=== PATIENT | female | born 1980 | race Caucasian/White ===

== ENCOUNTER → 2017-02-07 | Outpatient (REF) | payer OTHER | LOC: M LAB REF 13:47 | PROVIDERS: ATTEND Internal Medicine Nephrology | DX: N20.0 Calculus of kidney (principal) ==

== ENCOUNTER 2018-03-02 13:10 | Emergency (ER) | payer OTHER ==
[2018-03-02] MEDS: IPRATROPIUM 0.5MG/ALBUTEROL 2.5MG INH SOL UD 3ML (DUONEB)(J7620) NEB (14:40)
[2018-03-02] MEDS: AZITHROMYCIN 250 MG TAB PO (15:15)
== END 2018-03-02 15:18 | disposition home or self-care (01) ==
LOC: M ED 13:10
DX: J45.901 Unspecified asthma with (acute) exacerbation (principal); J20.9 Acute bronchitis, unspecified; N18.3 Chronic kidney disease, stage 3 (moderate); Z79.899 Other long term (current) drug therapy; F17.210 Nicotine dependence, cigarettes, uncomplicated
CPT/HCPCS: 71046

== ENCOUNTER 2018-11-28 16:51 | Emergency (ER) | payer OTHER ==
[~2018-11-28] VITALS: Ht 162.6 cm; Wt 59.4 kg
[~2018-11-28 16:51] MED LIST changes: -CIPR-249 PO; -HYDR12.55 PO; -KETO10TAB PO
[2018-11-28] MEDS ORDERED: HYDR12.55 PO (17:32)
[2018-11-28] MEDS ORDERED: KETOROLAC 30 MG/ML VIAL (J1885) IV ONE (18:30)
[2018-11-28] MEDS ORDERED: ONDANSETRON 4MG/2ML VIAL (J2405) IV ONE (18:30)
[2018-11-28] MEDS ORDERED: NS 1,000 ML IV ONE (18:30)
--- NOTE | 2018-11-28 18:31 | REPVR ---
EXAM: CT Abdomen and Pelvis Without Contrast EXAM DATE/TIME: 11/28/2018 5:45 PM CLINICAL HISTORY: 38 years old, female; Abdominal pain; Flank; Left; Additional info: Flank pain- left, fever/chills, ua small blood TECHNIQUE: Imaging protocol: Axial computed tomography images of the abdomen and pelvis without contrast. Coronal and sagittal reformatted images were created and reviewed. Radiation optimization: All CT scans at this facility use at least one of these dose optimization techniques: automated exposure control; mA and/or kV adjustment per patient size (includes targeted exams where dose is matched to clinical indication); or iterative reconstruction. COMPARISON: RENAL US 12/15/2015 10:06 AM FINDINGS: Liver: Normal. No mass. Gallbladder and bile ducts: Normal. No calcified stones. No ductal dilation. Pancreas: Normal. No ductal dilation. Spleen: Normal. No splenomegaly. Adrenals: Normal. No mass. Kidneys and ureters: Bilateral renal calculi measure 1.2 x 1.9 cm in the right renal pelvis and 1 x 0.6 cm in the left renal pelvis. Also noted are bilateral densities in the region of the medullary pyramids. Findings consistent with medullary sponge kidney with nephrocalcinosis. No significant hydronephrosis at this time. Infection to be excluded clinically. Stomach and bowel: Normal. No obstruction. No mucosal thickening. Appendix: No evidence of appendicitis. Intraperitoneal space: Normal. No free air. No significant fluid collection. Vasculature: Normal. No abdominal aortic aneurysm. Lymph nodes: Left inguinal lymphadenopathy measures up to 13 mm. Bladder: Unremarkable as visualized. Reproductive: IUD demonstrated within the uterus. Bones/joints: Age-indeterminate rib fracture right ninth rib. Soft tissues: Otherwise unremarkable. IMPRESSION: Bilateral renal calculi measure 1.2 x 1.9 cm in the right renal pelvis and 1 x 0.6 cm in the left renal pelvis. Also noted are bilateral densities in the region of the medullary pyramids. Findings consistent with medullary sponge kidney with nephrocalcinosis. No significant hydronephrosis at this time. Infection to be excluded clinically. Electronically signed by: Yuniel Alicea On 11/28/2018 18:31:04 PM
[2018-11-28 20:07] VITALS: BP 113/64
[2018-11-28] MEDS ORDERED: ACETAMINOPHEN 500 MG TAB PO ONE (20:15)
[2018-11-28] MEDS ORDERED: KETO10TAB PO (21:27)
[2018-11-28] MEDS ORDERED: CIPR-249 PO (21:41)
[2018-11-28] MEDS ORDERED: NORCO 5/325MG TABLET (BULK FOR ED) PO ONE (21:45)
== END 2018-11-28 22:16 | disposition home or self-care (01) ==
LOC: M ED 16:51
DX: N20.0 Calculus of kidney (principal); N39.0 Urinary tract infection, site not specified; N18.2 Chronic kidney disease, stage 2 (mild); Z79.899 Other long term (current) drug therapy
CPT/HCPCS: 74176; 84702; 96374; 96375; 99284; J1885; J2405

== ENCOUNTER → 2018-11-28 | Outpatient (REF) | payer OTHER ==
[~2018-11-28] MED LIST: CALC-205 PO; CIPR-249 PO; FLOM0.4C39 PO; HYDR12.55 PO; KETO10TAB PO; POTA10808 PO; PYRI1TAB5 PO; VENTAER INH; ZITHTAB PO
== END ==
LOC: M LAB REF 16:59
PROVIDERS: ATTEND Internal Medicine Nephrology
DX: Q61.5 Medullary cystic kidney (principal); N23 Unspecified renal colic; N39.0 Urinary tract infection, site not specified

== ENCOUNTER → 2019-07-20 | Outpatient (CLI) | payer OTHER ==
[~2019-07-20] MED LIST changes: +CIPR-249 PO; +HYDR12.55 PO; +KETO10TAB PO
== END ==
LOC: M LABSMTC 10:35
PROVIDERS: ATTEND Family Medicine
DX: Z11.59 Encounter for screening for other viral diseases (principal); Z20.828 Contact with and (suspected) exposure to other viral communicable diseases

== ENCOUNTER → 2020-01-25 | Outpatient (REF) | payer OTHER ==
[2020-01-25 17:50] LABS: APPEARANCE, URINE CLOUDY (CLEAR); BACTERIA, URINE AUTO 1+ (NEGATIVE); BILIRUBIN, URINE AUTO NEGATIVE (NEGATIVE); BLOOD, URINE BLOOD 2+ (NEGATIVE); COLOR, URINE YELLOW (YELLOW); GLUCOSE, URINE (UA) AUTO NEGATIVE (NEGATIVE); KETONE, URINE AUTO NEGATIVE (NEGATIVE); LEUKOCYTE ESTERASE, URINE AUTO 3+ (NEGATIVE); NITRITE, URINE AUTO POSITIVE (NEGATIVE); PROTEIN, URINE AUTO NEGATIVE (NEGATIVE); RBC, URINE AUTO 14 /HPF (0-3); SPECIFIC GRAVITY URINE AUTO 1.004 (1.002-1.035); SQUAMOUS EPITHELIAL CELL UR AU 0 /HPF (0-6); UROBILINOGEN, URINE AUTO 0.2 mg/dL (0.0-2.0); WBC, URINE AUTO TNTC /HPF (0-3)
== END ==
LOC: M LAB REF 16:28
PROVIDERS: ATTEND Internal Medicine Nephrology
DX: N39.0 Urinary tract infection, site not specified (principal); Q61.5 Medullary cystic kidney; N23 Unspecified renal colic

== ENCOUNTER → 2020-02-23 | Outpatient (REF) | payer OTHER | LOC: M LAB REF 17:20 | PROVIDERS: ATTEND Internal Medicine Nephrology | DX: Z16.12 Extended spectrum beta lactamase (ESBL) resistance (principal) ==

== ENCOUNTER → 2020-02-25 | Outpatient (CLI) | payer OTHER ==
--- NOTE | 2020-02-25 16:19 | REP ---
INDICATION: CALCULUS OF KIDNEY. COMPARISON: 11/28/2018. TECHNIQUE: Renal stone protocol with coronal and sagittal reconstructions. FINDINGS: CT abdomen: The lung bases are clear. Heart is not enlarged there is no pericardial thickening or effusion. No hiatal hernia. Stomach with retained food from recent meal. The liver, spleen, gallbladder, pancreas and adrenal glands are normal. The colon and small bowel loops in the upper abdomen were unremarkable except for some scattered diverticula in the colon without diverticulitis. Kidneys are unchanged in size there is evidence for diffuse pyramidal calcifications in a pattern consistent with medullary sponge kidney and nephrocalcinosis. The right kidney now shows a staghorn calculus with maximum diameter of 3.7 x 2 by 1.6 cm in the interpolar lower pole region on the right as a fusion of 2 prominent calcifications seen on the previous study. The left kidney shows 2 calcifications in the collecting system, the larger 18 x 10 mm and the smaller about 6 mm in the interpolar and lower pole regions respectively. There is no hydronephrosis, hydroureter or ureteral stone. I see no evidence of edema or asymmetric swelling of either kidney. No perinephric edema or fluid. CT pelvis: Multiple pelvic phleboliths are seen uterus is anteverted with a T-shaped IUD in body and fundus bladder partially filled without stone mass or wall thickening. No adnexal mass or pelvic free fluid some diverticulosis distal left colon and sigmoid without diverticulitis. Cecum and appendix seen and normal. Small bowel loops in the pelvis unremarkable no ventral or inguinal hernia. The bone windows in the abdomen and pelvis show no acute finding. IMPRESSION: 1. Medullary sponge kidney with nephrocalcinosis bilaterally similar to previous study. No hydronephrosis hydroureter or ureteral stone. 2. Staghorn calculus in the right kidney from fusion of 2 large calcifications in the interpolar and lower pole region seen last year with measurements as described. There are 2 calcifications in the left kidney 1 in the interpolar the other lower pole region as described. These also have enlarged since last year. 3. Scattered diverticula throughout the colon without signs of colitis or diverticulitis. Small bowel loops unremarkable. The other abdominal organs intact. 4. IUD in the uterine body and fundus. No pelvic mass. No ascites. <Electronically signed by Carlos Henson > 02/25/20 0894
== END ==
LOC: M RAD 15:44
PROVIDERS: ATTEND Internal Medicine Nephrology
DX: Z16.12 Extended spectrum beta lactamase (ESBL) resistance (principal); Q61.5 Medullary cystic kidney; N20.0 Calculus of kidney

== ENCOUNTER → 2020-03-04 | Outpatient (REF) | payer OTHER | LOC: M LAB REF 17:02 | PROVIDERS: ATTEND Internal Medicine Nephrology | DX: N39.0 Urinary tract infection, site not specified (principal) ==

== ENCOUNTER → 2020-03-24 | Outpatient (REF) | payer OTHER, BC ==
[~2020-03-24] MED LIST changes: +BACT800T5 PO; +CVS1CAP2 PO; +FLUC10TA PO; +MACR100C43 PO; +ZOFR4TAB16 PO
== END ==
LOC: M LAB REF 16:42
PROVIDERS: ATTEND Internal Medicine Nephrology
DX: Z16.12 Extended spectrum beta lactamase (ESBL) resistance (principal); N10 Acute pyelonephritis; N20.0 Calculus of kidney

== ENCOUNTER → 2020-03-29 | Outpatient (CLI) | payer OTHER ==
[2020-03-29 17:55] LABS: HEMATOCRIT 39.4 % (36.0-47.0); HEMOGLOBIN 12.5 g/dl (12.0-15.5); MEAN CORPUSCULAR HEMOGLOBIN 30.3 pg (27.0-33.0); MEAN CORPUSCULAR HGB CONC 31.7 g/dl (32.0-36.5); MEAN CORPUSCULAR VOLUME 95.4 fl (80.0-96.0); PLATELET COUNT, AUTOMATED 365 10^3/uL (150-450); RED BLOOD COUNT 4.13 10^6/uL (4.00-5.40); WHITE BLOOD COUNT 8.2 10^3/uL (4.0-10.0)
[2020-03-29 18:07] LABS: INR 0.93; PROTHROMBIN TIME 12.7 SECONDS (12.5-14.3)
[2020-03-29 18:07] LABS: AMORPHOUS SEDIMENT SMALL (NEGATIVE); APPEARANCE, URINE HAZY (CLEAR); BACTERIA, URINE AUTO NEGATIVE (NEGATIVE); BILIRUBIN, URINE AUTO NEGATIVE (NEGATIVE); BLOOD, URINE BLOOD NEGATIVE (NEGATIVE); COLOR, URINE YELLOW (YELLOW); GLUCOSE, URINE (UA) AUTO NEGATIVE (NEGATIVE); KETONE, URINE AUTO NEGATIVE (NEGATIVE); LEUKOCYTE ESTERASE, URINE AUTO 1+ (NEGATIVE); MUCUS, URINE SMALL (NEGATIVE); NITRITE, URINE AUTO NEGATIVE (NEGATIVE); PROTEIN, URINE AUTO NEGATIVE (NEGATIVE); RBC, URINE AUTO 5 /HPF (0-3); SPECIFIC GRAVITY URINE AUTO 1.014 (1.002-1.035); SQUAMOUS EPITHELIAL CELL UR AU 0 /HPF (0-6); UROBILINOGEN, URINE AUTO 0.2 mg/dL (0.0-2.0); WBC, URINE AUTO 7 /HPF (0-3)
[2020-03-29 18:08] LABS: PARTIAL THROMBOPLASTIN TIME 30.1 SECONDS (24.2-38.5)
[2020-03-29 18:16] LABS: BLOOD UREA NITROGEN 13 MG/DL (7-18); CALCIUM LEVEL 8.8 MG/DL (8.5-10.1); CARBON DIOXIDE LEVEL 30 MEQ/L (21-32); CHLORIDE LEVEL 106 MEQ/L (98-107); GLOMERULAR FILTRATION RATE > 60.0 (>58); GLUCOSE, FASTING 93 MG/DL (70-100); POTASSIUM SERUM 4.2 MEQ/L (3.5-5.1); SODIUM LEVEL 137 MEQ/L (136-145)
[2020-03-29 18:26] LABS: HCG, SERUM QUALITATIVE NEGATIVE (NEGATIVE)
--- NOTE | 2020-03-29 18:54 | REP ---
INDICATION: CALCULUS OF KIDNEY, LAB 1ST, EKG 2ND, XR 3RD COMPARISON: 03/02/2018. TECHNIQUE: PA/Lateral FINDINGS: Lungs: Clear, no infiltrate. Heart: Normal in size. Mediastinum: Mediastinal silhouette unremarkable. Pleural angles: Unremarkable.. Bones and soft tissues: Unremarkable. IMPRESSION: No acute pulmonary disease. <Electronically signed by Bill Acuña > 03/29/20 [id number]
--- NOTE | 2020-03-29 21:53 | ECGEPIP ---
[facility] Test Date: 2020-03-29 Pat Name: GROVER DRUMMOND Department: Room: - Gender: Female Internal Sales: TAMMY : 1980 Requested By: Kayla OVALLE Order Number: [id number] Reading MD: Tom Mendez Measurements Intervals [place] Rate: 53 P: 65 DE: 168 QRS: 78 QRSD: 93 T: 50 QT: 408 QTc: 383 Interpretive Statements SINUS BRADYCARDIA Otherwise within normal limits. No prior ECG available for comparison at the time of interpretation. Electronically Signed on 03-29-2020 21:52:58 EST by Tom Mendez
== END ==
LOC: M LAB 17:14
PROVIDERS: ATTEND Nurse Practitioner Women's Health
DX: Z01.818 Encounter for other preprocedural examination (principal); N20.0 Calculus of kidney

== ENCOUNTER → 2020-04-01 | Outpatient (CLI) | payer OTHER, BC | LOC: M LABSMTC 11:50 | PROVIDERS: ATTEND Anesthesiology | DX: Z01.812 Encounter for preprocedural laboratory examination (principal); Z20.828 Contact with and (suspected) exposure to other viral communicable diseases ==

== ENCOUNTER → 2020-04-04 | Outpatient (CLI) | payer OTHER ==
[~2020-04-04] MED LIST changes: +ACETAMINOPHEN *IV* 1,000 MG in IV 1 EA IV STA; +FLUCONAZOLE 100 MG TAB PO ONE; +ISOVUE-300 61% 50ML VIAL As Ordered ONE; +LIDOCAINE 1% MDV 20ML VIAL As Ordered ONE; +MIDAZOLAM INJ 2MG/2ML VIAL (J2250 PER 1MG) As Ordered ONE; +NS 1,000 ML IV SCH; +ONDANSETRON 4MG/2ML VIAL As Ordered ONE; +OXYB5TAB10 PO; +PERCOCET 5MG/325MG TAB As Ordered ONE; +PERCOCET PO; +PROMETHAZINE INJ 25 MG/ML VIAL (J2550) As Ordered ONE; +ceFAZolin 1GM VIAL (J0690 PER 500MG) As Ordered ONE; +ceFAZolin SOD 1 GM in D5W MINI-BAG PLUS 50 ML IV ONE; +diphenhydrAMINE 50MG/ML VIAL (J1200) As Ordered ONE; +fentaNYL 100 MCG/2 ML INJECTION (J3010) As Ordered ONE
--- NOTE | 2020-04-04 10:19 | IRHP ---
[facility] Pre-Procedure H & P General Date of Service: Apr 04, 2020 Procedure: Same Day Surgery Interval History and Physical I have seen the patient and reviewed last H & P performed within 30 days. There is no significant interval change. History of Present Illness Chief Complaint The patient is a 40-year-old female admitted with a reason for visit of Staghorn Calculus. PRE-PROCEDURE DIAGNOSIS: right kidney stone. needs PCNL access HEART: normal rate. LUNGS: normal breathing at rest. ASA Classification ASA Classification: II-Mild systemic disease, III-Severe systemic dis. Mallampati Score: II NPO: Yes Problems with prior sedation: No Obstructive Sleep Apnea: No Plan moderate sedation Allergies Coded Allergies: No Known Allergies (Unverified , 03/30/20) Home Medications Scheduled Fluconazole (Diflucan), 100 MG PO Q2D, (Reported) Lactobacillus Combo No.10 (Probiotic), 1 CAP PO DAILY, (Reported) Nitrofurantoin Monohyd/M-Cryst (Macrobid 100 mg Capsule), 100 MG PO DAILY, (Reported) Sulfamethoxazole/Trimethoprim (Bactrim Ds Tablet), 1 TAB PO BID, (Reported) Tamsulosin HCl (Flomax), 0.4 MG PO DAILY, (Reported) Scheduled PRN Ondansetron HCl (Zofran), 4 MG PO PRN PRN for NAUSEA, (Reported) Discontinued Medications Ciprofloxacin HCl (Cipro), 500 MG PO BID Discontinued Reason: Pt states not taking Hydrochlorothiazide (Hydrochlorothiazide), 12.5 MG PO DAILY, (Reported) Discontinued Reason: Pt states not taking Phenazopyridine HCl (Pyridium), 200 MG PO TID, (Reported) Discontinued Reason: Pt states not taking VS, I&O, 24H, Fishbone Vital Signs/I&O Vital Signs Date Time Temp Pulse Resp B/P (MAP) Pulse Ox O2 Delivery O2 Flow Rate FiO2 04/04/20 09:49 97.7 81 20 99 Room Air JN SAMUELS MD Apr 04, 2020 10:19
[2020-04-04 13:30] VITALS: BP 125/71
--- NOTE | 2020-04-07 12:29 | POST-OPPD ---
Postoperative Procedure Note Date Of Procedure: Apr 04, 2020 Time Of Procedure: 16:00 Percutaneous nephroureteral catheter placement using fluoroscopic and ultrasound guidance. Nephrostogram and Ureterogram Ultrasound of the right kidney. Clinical Information:Right kidney staghorn calculus. Needs antegrade PCNL access. Physician: Dr. Steen. Procedure: The patient was advised of the benefits, risks, and alternatives of the procedure and informed consent was obtained. A time out was performed with verification of the patient's name, MRN, site of procedure, and type of procedure to be performed. The patient was positioned in the prone position on the angiographic table. The site was prepped and draped in the usual sterile fashion. Moderate sedation was performed by the physician including the presence of an independent trained RN who assisted in monitoring the patient's level of consciousness and physiological status. Following the administration of fentanyl and Versed, the physician spent 60 minutes of continuous pqmo-oy-wdoh time with the patient. A silk presser radiograph reveals right staghorn calculus. The anticipated puncture site on the flank was anesthetized with lidocaine. Using ultrasound and fluoroscopy guidance, the staghorn calculus was accessed with a 21-gauge Chiba needle. A nephrostogram was performed which demonstrates no significant hydronephrosis or hydroureter. A second 21-gauge Chiba needle was then used under fluoroscopy guidance to access the lower pole calyx with the stone. A nephrostogram and ureterogram were performed demonstrating successful access. A [place] wire was then advanced into the collecting system, under fluoroscopy guidance. The needle was then exchanged for a nonvascular introducer set. An Amplatz wire was then advanced into the ureter, down the ureter and into the bladder, under fluoroscopy guidance. A glide cath was advanced over the wire under fluoroscopy guidance into the bladder. Injection of contrast through the catheter confirmed successful catheterization of the bladder. No extravasation. A 6 Sri Lankan Seidmon Catheter was then advanced over the wire, through the renal collecting system, down the ureter into the bladder. The distal pigtail was formed. A final nephrostogram and ureterogram were performed confirming positioning of the catheter in the renal collecting system, ureter and bladder. No ureteral extravasation. The catheter was sutured in position with 2-0 Prolene and a sterile dressing applied. The patient tolerated the procedure well and was returned to the PRU in stable condition. EBL: < 5 mL. Complications:None. Conclusion: 1. Nephrostogram and Ureterogram demonstratelarge staghorn calculus in the right kidney without hydronephrosis or hydroureter. 2. Successful right-sided antegrade nephroureteral access for PCNL. Patient to follow-up on Saturday for PCNL. Thank you for this referral. JN STEEN MD Apr 07, 2020 12:29
== END ==
LOC: M IRPRO 09:32 → M SDC 09:32 → EEVIPCON 10:30
PROVIDERS: ATTEND Nurse Practitioner Women's Health
DX: N20.0 Calculus of kidney (principal); F17.210 Nicotine dependence, cigarettes, uncomplicated; Z01.818 Encounter for other preprocedural examination; Z79.899 Other long term (current) drug therapy
CPT/HCPCS: 50433; 99152; 99153; C1758; C1769; C1894; J0690; J1200; J2250; J2405; J3010; Q9967

== ENCOUNTER 2020-04-06 07:30 | Inpatient (IN) | payer OTHER ==
[~2020-04-06] VITALS: Ht 162.6 cm; Wt 62.1 kg
[~2020-04-06 07:30] MED LIST changes: -ACETAMINOPHEN *IV* 1,000 MG in IV 1 EA IV STA; -FLUCONAZOLE 100 MG TAB PO ONE; -ISOVUE-300 61% 50ML VIAL As Ordered ONE; -LIDOCAINE 1% MDV 20ML VIAL As Ordered ONE; -MIDAZOLAM INJ 2MG/2ML VIAL (J2250 PER 1MG) As Ordered ONE; -NS 1,000 ML IV SCH; -ONDANSETRON 4MG/2ML VIAL As Ordered ONE; -OXYB5TAB10 PO; -PERCOCET 5MG/325MG TAB As Ordered ONE; -PERCOCET PO; -PROMETHAZINE INJ 25 MG/ML VIAL (J2550) As Ordered ONE; -ceFAZolin 1GM VIAL (J0690 PER 500MG) As Ordered ONE; -ceFAZolin SOD 1 GM in D5W MINI-BAG PLUS 50 ML IV ONE; -diphenhydrAMINE 50MG/ML VIAL (J1200) As Ordered ONE; -fentaNYL 100 MCG/2 ML INJECTION (J3010) As Ordered ONE
[2020-04-06] MEDS ORDERED: ceFAZolin SOD 2 GM in IV 1 EA IV ONE (11:45)
[2020-04-06] MEDS ORDERED: SCOPOLAMINE 1MG TRANSDERMAL PATCH As Ordered ONE (12:29)
[2020-04-06] MEDS ORDERED: LR 1,000 ML IV ONE (12:45)
[2020-04-06] MEDS ORDERED: SCOPOLAMINE 1MG TRANSDERMAL PATCH TOP ONE (12:45)
[2020-04-06] MEDS ORDERED: ONDANSETRON 4MG/2ML VIAL As Ordered ONE ×2 (14:15→15:24)
[2020-04-06] MEDS ORDERED: fentaNYL 250 MCG/5 ML INJECTION (J3010) As Ordered ONE (14:15)
[2020-04-06] MEDS ORDERED: ROCURONIUM BROMIDE 50 MG/5 ML VIAL As Ordered ONE (14:15)
[2020-04-06] MEDS ORDERED: propofoL 200 MG/20 ML VIAL As Ordered ONE (14:15)
[2020-04-06] MEDS ORDERED: LIDOCAINE 2% 100MG/5ML SDV (FOR ANES.) As Ordered ONE (14:15)
[2020-04-06] MEDS ORDERED: dexameTHASONE 4 MG/ML 1ML VIAL (J1100 PER 1MG) As Ordered ONE (14:15)
[2020-04-06] MEDS ORDERED: MIDAZOLAM INJ 2MG/2ML VIAL (J2250 PER 1MG) As Ordered ONE (14:15)
[2020-04-06] MEDS ORDERED: SEVOFLURANE INHAL SOLN 250 ML BTL As Ordered ONE (15:00)
[2020-04-06] MEDS ORDERED: ePHEDrine SULFATE 25 MG/5 ML(5MG/ML) SYRINGE As Ordered ONE (15:01)
[2020-04-06] MEDS ORDERED: PHENYLephrine HCL 500 MCG/5 ML (100MCG/ML) SYRINGE (J2370) As Ordered ONE (15:01)
[2020-04-06] MEDS ORDERED: CONRAY-60 60% 50ML VIAL (Q9961) As Ordered ONE (15:06)
[2020-04-06] MEDS ORDERED: SUGAMMADEX SODIUM 500 MG/5 ML VIAL (BRIDION) As Ordered ONE (15:24)
[2020-04-06] MEDS ORDERED: ACETAMINOPHEN 1000MG 100ML IV BTL (OFIRMEV) (J0131 PER 10MG) As Ordered ONE (15:24)
--- NOTE | 2020-04-06 16:41 | REP ---
INDICATION: NEPHROLITHIASIS. COMPARISON: 04/04/2020.. TECHNIQUE: Seven views. 34.8 seconds of fluoroscopy time is reported. FINDINGS: A sequence of 7 last image hold fluoroscopically obtained spot radiographs of the right abdomen documents percutaneous large tract manipulation of the right kidney and renal pelvis. Nephrostomy catheter and ureteral stent in place. IMPRESSION: Procedural imaging. <Electronically signed by Sterling Gallo > 04/06/20 [id number]
[2020-04-06] MEDS: oxyCODONE 5MG TAB PO PRN ×2 (16:48→17:33)
[2020-04-06] MEDS ORDERED: HYDROMORPHONE HCL 0.5 MG/ 0.5 ML SYRINGE (J1170 PER 1) IV PRN (17:00)
[2020-04-06] MEDS ORDERED: ONDANSETRON 4MG/2ML VIAL IV PRN ×2 (17:00→17:15)
[2020-04-06] MEDS ORDERED: LR 1,000 ML IV SCH (17:00)
[2020-04-06] MEDS ORDERED: fentaNYL 100 MCG/2 ML INJECTION (J3010) IV PRN (17:00)
[2020-04-06] MEDS: NS 1,000 ML IV SCH (17:02)
[2020-04-06] MEDS ORDERED: ACETAMINOPHEN TAB 650MG DOSE (2X325MG) PO PRN (17:15)
[2020-04-06] MEDS ORDERED: MORPHINE 2 MG/ML 1ML VIAL (J2270) IV PRN (17:15)
[2020-04-06] MEDS ORDERED: PERCOCET 5MG/325MG TAB PO PRN (17:15)
[2020-04-06] MEDS ORDERED: oxyBUTYnin 5 MG TAB As Ordered ONE (17:31)
[2020-04-06 18:00] VITALS: BP 114/61
[2020-04-06 18:19] LABS: HEMATOCRIT 38.6 % (36.0-47.0); HEMOGLOBIN 12.5 g/dl (12.0-15.5); MEAN CORPUSCULAR HEMOGLOBIN 31.3 pg (27.0-33.0); MEAN CORPUSCULAR HGB CONC 32.4 g/dl (32.0-36.5); MEAN CORPUSCULAR VOLUME 96.5 fl (80.0-96.0); PLATELET COUNT, AUTOMATED 344 10^3/uL (150-450); WHITE BLOOD COUNT 13.9 10^3/uL (4.0-10.0)
[2020-04-06 18:31] LABS: BLOOD UREA NITROGEN 12 MG/DL (7-18); CALCIUM LEVEL 8.5 MG/DL (8.5-10.1); CARBON DIOXIDE LEVEL 27 MEQ/L (21-32); CHLORIDE LEVEL 108 MEQ/L (98-107); CREATININE FOR GFR 0.77 MG/DL (0.55-1.30); GLOMERULAR FILTRATION RATE > 60.0 (>58); GLUCOSE, FASTING 102 MG/DL (70-100); POTASSIUM SERUM 4.3 MEQ/L (3.5-5.1); SODIUM LEVEL 137 MEQ/L (136-145)
--- NOTE | 2020-04-06 19:45 | ROOPDOC ---
[facility] Report Of Operation Report of Operation DATE OF PROCEDURE: 04/06/20 PREPROCEDURE DIAGNOSIS: Right kidney stone. POSTPROCEDURE DIAGNOSIS: Right kidney stone. PROCEDURE: Right percutaneous nephrolithotomy, right antegrade nephrostogram with intraoperative interpretation of images, right ureteral stent placement. SURGEON: Dr. Jorge Bray FURNITURE DUSTER: None ANESTHESIA: General. OPERATIVE INDICATIONS: This is a 40 year-old female who was recently found to have bilateral nephrolithiasis with a staghorn stone in her right kidney. She was brought to the operating room today for the above-listed procedure. DESCRIPTION OF PROCEDURE: The patient brought to the operating room, and general anesthesia was induced. Prophylactic antibiotics were infused. A Germain catheter was then placed under sterile conditions. The patient was then re positioned in the prone position in preparation for a right-sided percutaneous nephrolithotomy. The patient was then prepped and draped in the usual sterile fashion. At this point, the previously-placed right nephroureteral catheter was utilized to advance a Motion guidewire down the right collecting system and into the bladder. The nephroureteral catheter was then removed, leaving the wire in place. Next, a 2-3 cm transverse incision was made adjacent to the wire. A dual-lumen ureteral catheter was then advanced down into the right renal pelvis. The staghorn stone could easily be seen on fluoroscopy. An antegrade nephrostogram was performed and was negative for extravasation. An Amplatz Super Stiff wire was then advanced down the right collecting system and into the bladder. The dual-lumen ureteral catheter was then removed, leaving both wires in place. The Motion wire was then secured to the drape to serve as a safety wire. Next, over the Super Stiff wire, a balloon dilator was advanced into the right renal pelvis. The balloon was then inflated and left in place for a few seconds. Next, an access sheath was advanced over the balloon into the right renal pelvis. The balloon was then let down and removed, leaving the access sheath and the wire in place. At this point, a nephroscope was introduced into the right renal pelvis. We were able to identify the staghorn stone. The stone was then fragmented into several pieces and suctioned out using a CyberWand. It appeared that approximately 85% of the stone was removed. There was another fragment in a lower pole calyx that I was not able to reach with the nephroscope. The nephroscope was then removed, and a #7-Singaporean x 22-32 cm double J ureteral stent was advanced down into the right collecting system over the wire. The Super Stiff wire was then removed, and there were adequate curls of the stent in the right renal pelvis and in the bladder. At this point, the access sheath was removed, and the Motion wire was utilized to advance a #18-Singaporean Lummi tip catheter down into the right collecting system. After the tip was within the renal pelvis, the balloon was inflated wi th about 3 mL of contrast. The Lummi tip catheter was also utilized to shoot an antegrade nephrostogram, and this was negative for extravasation. We then secured the Lummi tip catheter to the skin with a #2-0 silk suture. This was then connected to gravity drainage and marked the conclusion of the procedure. The patient was placed back in supine position, awakened from anesthesia, and transported to the recovery room in stable condition. ESTIMATED BLOOD LOSS: approximately 50 mL COMPLICATIONS: None. SPECIMENS: Right kidney stone fragments. PLAN: The patient will be admitted to the hospital postoperatively. I will likely remove her right nephrostomy catheter tomorrow, and if her labs are stable and urine output is clear, I will also remove the Germain catheter. She will be discharged home with the plan to bring her back to the OR in a few weeks for bilateral ureteroscopy to treat her left sided kidney stones and to remove the remainder of her right sided stones as well. JORGE BRAY MD Apr 06, 2020 19:44
[2020-04-06] MEDS: PIPERACILLIN/TAZOBACTAM SOD 3.375 GM in D5W MINI-BAG PLUS 50 ML IV SCH ×2 (20:19→23:59)
[2020-04-06] MEDS: DOCUSATE SODIUM 100MG CAPSULE PO SCH (20:34)
[2020-04-06] MEDS: oxyBUTYnin 5 MG TAB PO PRN (20:34)
[2020-04-06 22:00] VITALS: BP 122/74
[2020-04-07] MEDS: PERCOCET 5MG/325MG TAB PO PRN ×3 (00:01→12:35)
[2020-04-07] MEDS: NICOTINE POLACRILEX 2 MG GUM PO PRN ×2 (00:45→09:40)
[2020-04-07 02:00] VITALS: BP 108/54
[2020-04-07] MEDS: NS 1,000 ML IV SCH (06:07)
[2020-04-07] MEDS: oxyBUTYnin 5 MG TAB PO PRN ×2 (06:07→12:32)
[2020-04-07] MEDS: PIPERACILLIN/TAZOBACTAM SOD 3.375 GM in D5W MINI-BAG PLUS 50 ML IV SCH ×2 (06:07→12:16)
[2020-04-07 07:48] LABS: HEMATOCRIT 34.1 % (36.0-47.0); HEMOGLOBIN 11.2 g/dl (12.0-15.5); MEAN CORPUSCULAR HEMOGLOBIN 31.2 pg (27.0-33.0); MEAN CORPUSCULAR HGB CONC 32.8 g/dl (32.0-36.5); PLATELET COUNT, AUTOMATED 321 10^3/uL (150-450); RED BLOOD COUNT 3.59 10^6/uL (4.00-5.40); WHITE BLOOD COUNT 9.9 10^3/uL (4.0-10.0)
[2020-04-07 08:07] LABS: BLOOD UREA NITROGEN 9 MG/DL (7-18); CALCIUM LEVEL 8.1 MG/DL (8.5-10.1); CARBON DIOXIDE LEVEL 24 MEQ/L (21-32); CHLORIDE LEVEL 108 MEQ/L (98-107); CREATININE FOR GFR 0.65 MG/DL (0.55-1.30); GLOMERULAR FILTRATION RATE > 60.0 (>58); GLUCOSE, FASTING 104 MG/DL (70-100); POTASSIUM SERUM 4.3 MEQ/L (3.5-5.1); SODIUM LEVEL 139 MEQ/L (136-145)
[2020-04-07] MEDS: DOCUSATE SODIUM 100MG CAPSULE PO SCH (08:11)
[2020-04-07] MEDS ORDERED: FLUCONAZOLE 50MG TABLET PO ONE (09:00)
--- NOTE | 2020-04-07 09:24 | IPNPDOC ---
Subjective Review oF Systems Chief Complaint The patient is a 40-year-old female admitted with a reason for visit of Nephrolithiasis. Events since Last Encounter No acute events o/n. Good pain control. No n/v. No f/c/ns. Objective Physical Examination General Exam: Alert, Cooperative, No Acute Distress Skin Exam: Nl turgor and temperature Neuro Exam: Normal Speech Psych Exam: Mental status NL, Mood NL Other physical findings R nephrostomy catheter and Germain catheter draining light pink urine; R flank incision clean/dry/intact Vital Signs/I&O Vital Signs Date Time Temp Pulse Resp B/P (MAP) Pulse Ox O2 Delivery O2 Flow Rate FiO2 04/07/20 07:00 17 Room Air 04/07/20 02:00 98.5 90 108/54 (72) 97 I&O- Last 24 Hours up to 6 AM 04/07/20 05:59 Intake Total 3250 ml Output Total 1560 ml Balance 1690 ml Laboratory Data Labs 24H Laboratory Tests 2 04/06/20 15:36: 04/06/20 17:24: Nucleated Red Blood Cells % (auto) 0.0, Anion Gap 2L, Glomerular Filtration Rate > 60.0, Calcium Level 8.5 04/07/20 06:51: Nucleated Red Blood Cells % (auto) 0.0, Anion Gap 7L, Glomerular Filtration Rate > 60.0, Calcium Level 8.1L CBC/BMP Laboratory Tests 04/06/20 17:24 04/07/20 06:51 Assessment/Plan Date Seen The patient was seen on 04/07/20. Patient Summary This is a 40 y/o F POD1 s/p R PCNL. She is doing well. Her R neph catheter was removed this morning. Plan/VTE VTE Prophylaxis Ordered?: Yes VTE Exclusion Mechanical Proph: N/A:VTE Prophy Ordered Plan - d/c Germain - percocet prn pain - oxybutynin prn bladder spasms - strict I/Os - d/c IVF - regular diet - discharge home after patient voids OJRGE BRAY MD Apr 07, 2020 09:24
[2020-04-07] MEDS ORDERED: PERCOCET PO (09:38)
[2020-04-07] MEDS ORDERED: OXYB5TAB10 PO (09:38)
[2020-04-07 10:00] VITALS: BP 135/70
--- NOTE | 2020-04-08 11:49 | DSES ---
DISCHARGE SUMMARY DATE OF ADMISSION: 04/06/2020 DATE OF DISCHARGE: 04/07/2020 ADMITTING DIAGNOSIS: Right kidney stone. DISCHARGE DIAGNOSIS: Right kidney stone. ADMITTING PHYSICIAN: Jerad Alicia MD. DISCHARGE PHYSICIAN: Jerad Alicia MD. PROCEDURES PERFORMED: Right percutaneous nephrolithotomy on April 06, 2020. HISTORY OF PRESENT ILLNESS: This is a 40-year-old female who was found to have a large staghorn right kidney stone. She underwent the above listed procedure on April 06, 2020 and was admitted post-operatively. HOSPITAL COURSE: The patient was admitted to the hospital after undergoing the above listed procedure. Her post-operative course was unremarkable. On the morning of post-operative day 1 all of her labs were within acceptable limits. Specifically her hemoglobin level was stable at 11.2 and her serum creatinine was 0.7. She had good urine output from both her right nephrostomy catheter as well as her Germain catheter. Her right nephrostomy catheter was removed on the morning of post-operative day 1. Shortly after her Germain catheter was removed and she voided without any difficulty. Her diet was advanced and she tolerated a regular diet without difficulty. She was ambulating well. She had good pain control on oral pain medication. She was therefore deemed ready for discharge home on post-operative day 1. She was discharged home with the plan for her to follow up in the urology clinic in a few weeks. We will need to get her set up to come back for bilateral uteroscopy with laser lithotripsy in approximately 4-5 weeks.
== END 2020-04-07 13:42 | disposition home or self-care (01) | DRG 661 ==
LOC: M OR 11:11 → M MSPAV 17:48
PROVIDERS: ADMIT Urology; ATTEND Urology
PROC: 0T763DZ Dilation of Right Ureter with Intraluminal Device, Percutaneous Approach (ICD-10-PCS; 2020-04-06)
PROC: 0TC03ZZ Extirpation of Matter from Right Kidney, Percutaneous Approach (ICD-10-PCS; principal; 2020-04-06 12:30)
DX: N20.0 Calculus of kidney (principal); F17.210 Nicotine dependence, cigarettes, uncomplicated; Z79.899 Other long term (current) drug therapy

== ENCOUNTER → 2020-04-20 | Outpatient (REF) | payer OTHER ==
[~2020-04-20] MED LIST changes: +OXYB5TAB10 PO; +PERCOCET PO
[2020-04-20 13:39] LABS: APPEARANCE, URINE CLEAR (CLEAR); BACTERIA, URINE AUTO NEGATIVE (NEGATIVE); BILIRUBIN, URINE AUTO NEGATIVE (NEGATIVE); BLOOD, URINE BLOOD 2+ (NEGATIVE); COLOR, URINE STRAW (YELLOW); GLUCOSE, URINE (UA) AUTO NEGATIVE (NEGATIVE); KETONE, URINE AUTO NEGATIVE (NEGATIVE); LEUKOCYTE ESTERASE, URINE AUTO 2+ (NEGATIVE); MUCUS, URINE SMALL (NEGATIVE); NITRITE, URINE AUTO NEGATIVE (NEGATIVE); PROTEIN, URINE AUTO NEGATIVE (NEGATIVE); RBC, URINE AUTO 13 /HPF (0-3); SPECIFIC GRAVITY URINE AUTO 1.005 (1.002-1.035); SQUAMOUS EPITHELIAL CELL UR AU 0 /HPF (0-6); UROBILINOGEN, URINE AUTO 0.2 mg/dL (0.0-2.0); WBC, URINE AUTO 10 /HPF (0-3)
== END ==
LOC: M SMT 13:05
PROVIDERS: ATTEND Nurse Practitioner Women's Health
DX: N20.0 Calculus of kidney (principal)

== ENCOUNTER → 2020-04-25 | Outpatient (REF) | payer OTHER | LOC: M LAB REF 16:55 | PROVIDERS: ATTEND Internal Medicine Nephrology | DX: N20.0 Calculus of kidney (principal); Z16.12 Extended spectrum beta lactamase (ESBL) resistance ==

== ENCOUNTER → 2020-06-13 | Outpatient (CLI) | payer OTHER ==
[~2020-06-13] MED LIST changes: +BACT400T PO; +MACR100C42 PO
== END ==
LOC: M LABSMTC 11:52
PROVIDERS: ATTEND Anesthesiology
DX: Z01.812 Encounter for preprocedural laboratory examination (principal); Z20.822 Contact with and (suspected) exposure to COVID-19

== ENCOUNTER → 2020-06-15 | Outpatient (CLI) | payer OTHER ==
[~2020-06-15] MED LIST changes: +OXYC1TAB23 PO
== END ==
LOC: M LAB 08:47
PROVIDERS: ATTEND Urology
DX: N20.0 Calculus of kidney (principal); N39.0 Urinary tract infection, site not specified

== ENCOUNTER 2020-06-17 09:02 | Day surgery (SDC) | payer OTHER ==
[~2020-06-17] VITALS: Ht 162.6 cm; Wt 62.1 kg
[~2020-06-17 09:02] MED LIST changes: +ACETAMINOPHEN 1000MG 100ML IV BTL (OFIRMEV) (J0131 PER 10MG) As Ordered ONE; +LIDOCAINE 2% 100MG/5ML SDV (FOR ANES.) As Ordered ONE; +LR 1,000 ML IV ONE; +MIDAZOLAM INJ 2MG/2ML VIAL (J2250 PER 1MG) As Ordered ONE; +ONDANSETRON 4MG/2ML VIAL As Ordered ONE; -OXYC1TAB23 PO; +PHENYLephrine 500MCG 5ML (100MCG/ML) SYRINGE As Ordered ONE; +ceFAZolin SOD 2 GM in IV 1 EA IV ONE; +dexameTHASONE 4 MG/ML 1ML VIAL (J1100 PER 1MG) As Ordered ONE; +ePHEDrine SULFATE 25 MG/5 ML(5MG/ML) SYRINGE As Ordered ONE; +propofoL 200 MG/20 ML VIAL As Ordered ONE
--- OUTSIDE RECORDS SUMMARY | 2020-06-17 09:07 | CCD ---
Author Author [facility] Organization [facility] Address Unknown Phone Unavailable Care Team Providers Care Cable Inspector Name Role Phone Nabeelkeri Kayla Unavailable PROBLEMS Type Condition ICD9-CM Code [id number] Code Onset Dates Condition S tatus SNOMED Code Notes Problem Staghorn calculus N20.0 Active 0962888 Problem Kidney stone N20.0 Active 57644655 Problem Nondependent tobacco use disorder 305.1 Active 695644186 ALLERGIES No Known Allergies ENCOUNTERS from 1980 to 2020-04-25 Encounter Location Date Provider Diagnosis [facility] [address] [place] [address] Mar Kayla Lepe IMMUNIZATIONS Vaccine Route Administration Date Status Influenza (6mo & up) Fluzone Unknown August 23, 2015 Oth ers Influenza (6mo & up) Fluzone Unknown Jan 25, 2015 Ref used SOCIAL HISTORY Tobacco Use: Social History Observation Description Date Details (start date - stop date) Current Smoker Sex Assigned At : Social History Observation Description Sex Assigned At Unknown Tobacco Use: Question Answer Notes Are you a: current smoker Patient counseled on the dangers of tobacco use and urged to quit: 08/23/2015 How many cigarettes a day do you smoke? 6-10 Are you interested in quitting? Thinking about quitting Counseled the patient on smoking cessation, education provid ed 03/10/2020 REASON FOR REFERRAL No Information VITAL SIGNS No information MEDICATIONS Medication SIG (Take, Route, Frequency, Duration) Notes Start Da te End Date Status Zofran 4 MG 1 tablet Orally Once a day for 30 day(s) Active Mirena 20 MCG/24HR Intrauterine Act betzy Acetaminophen 500 MG 1 capsule as needed Orally every 6 hrs Active Multivitamins 1 tablet Orally Once a day Not-Taking Pyridium 100 MG 2 tablets after meals Orally Three times a day for 2 day(s) Active Afrin 12 Hour 0.05 % 2 drops as needed Nasally Twice a day for 3 days Dec, Not-Taking Augmentin 875-125 MG 1 tablet Orally every 12 hrs for 10 day(s) Dec, Not-Taking Buford 5-325 MG 1 tablet as needed Orally every 6 hrs Not-Taking Colace 100 MG 1 capsule as needed Orally Once a day Not-Taking Hydrochlorothiazide 12.5 MG 1 capsule in the morning O rally Once a day for 30 day(s) Active Calcium + D 315-200 MG-UNIT 1 tablet with meals Orally Twice a day Not-Taking Flomax 0.4 MG 1 capsule 30 minutes after t he same meal each day Orally Once a day for 30 days Active Macrobid 100 MG as directed Orally N ot-Taking PROCEDURES No Information RESULTS No Results REASON FOR VISIT urine results MEDICAL (GENERAL) HISTORY Type Description Date Medical History Nicotine dependence Medical History Right Branchial Cleft Cyst Medical History Kidney Stone Medical History Nephrocalcinosis Surgical History cyst removal Surgical History Colposcopy Surgical History neph tube placed 04/04/2021 Surgical History PCNL 03/2021 Hospitalization History Cildbirth Goals Section No Information Health Concerns No Information MEDICAL EQUIPMENT No Information MENTAL STATUS No Information FUNCTIONAL STATUS No Information ASSESSMENTS No Information PLAN OF TREATMENT No Information Insurance Providers Payer Name Payer Address Payer Phone Insured Name Patient Relati onship to Insured Coverage Start Date Coverage End Date [facility] [id number] [facility] [id number] self
--- OUTSIDE RECORDS SUMMARY | 2020-06-17 09:07 | CCD ---
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 Name Role Phone RavinJerad castillo Unavailable PROBLEMS Type Condition ICD9-CM Code [id number] Code Onset Dates Condition S tatus SNOMED Code Notes Problem Nondependent tobacco use disorder 305.1 Active 257399586 Problem Staghorn calculus N20.0 Active 5963539 ALLERGIES No Known Allergies ENCOUNTERS from 1980 to 2020-04-12 Encounter Location Date Provider Diagnosis [facility] Urology [address] [place] [address] Mar Jerad Alicia IMMUNIZATIONS Vaccine Route Administration Date Status Influenza [...] Notes Start Da te End Date Status Colace 100 MG 1 capsule as needed Orally Once a day Not-Taking Acetaminophen 500 MG 1 capsule as needed Orally every 6 hrs Active Mirena 20 MCG/24HR Intrauterine Act betzy [place] 5-325 MG 1 tablet as needed Orally every 6 hrs Not-Taking Zofran 4 MG 1 tablet Orally Once a day for 30 day(s) Active Augmentin 875-125 MG 1 tablet Orally every 12 hrs for 10 day(s) Dec, Not-Taking Afrin 12 Hour 0.05 % 2 drops as needed Nasally Twice a day for 3 days Dec, Not-Taking Multivitamins 1 tablet Orally Once a day Not-Taking Pyridium 100 MG 2 tablets after meals Orally Three times a day for 2 day(s) Active Flomax 0.4 MG 1 capsule 30 minutes after t he same meal each day Orally Once a day for 30 days Active Hydrochlorothiazide 12.5 MG 1 capsule in the morning O rally Once a day for 30 day(s) Active Macrobid 100 MG as directed Orally A ctive Calcium + D 315-200 MG-UNIT 1 tablet with meals Orally Twice a day Not-Taking PROCEDURES No Information RESULTS No Results REASON FOR VISIT Change in Appt MEDICAL (GENERAL) HISTORY Type Description Date Medical History Nicotine dependence Medical History Right Branchial Cleft Cyst Medical History Kidney Stone Medical History Nephrocalcinosis Surgical History cyst removal Surgical History Colposcopy Hospitalization History Cildbirth Goals Section No Information Health Concerns No Information MEDICAL EQUIPMENT No Information MENTAL STATUS No Information FUNCTIONAL STATUS No Information ASSESSMENTS No Information PLAN OF TREATMENT Next Appt Details Provider Name:Kayla Matos Roberth, 2020-12-3 0 09:00:00 AM, [address], [place], [address], Insurance Providers Payer Name Payer Address Payer Phone Insured Name Patient Relati onship to Insured Coverage Start Date Coverage End Date [facility] [phone] [facility] [id number] [address]
--- OUTSIDE RECORDS SUMMARY | 2020-06-17 09:07 | CCD ---
Author Author [facility] [employer] [facility] Organization [facility] [employer] [facility] Address Unknown Phone Unavailable Care Team Providers Care Immigration Manager Name Role Phone Kayla Lepe Unavailable PROBLEMS Type Condition ICD9-CM Code [id number] Code Onset Dates Condition S tatus SNOMED Code Notes Problem Staghorn calculus N20.0 Active 1816309 Problem Kidney stone N20.0 Active 57618830 Problem Nondependent tobacco use disorder 305.1 Active [id number] ALLERGIES No Known Allergies ENCOUNTERS from 1980 to 2020-04-21 Encounter Location Date Provider Diagnosis [facility] Urology [address] [place] [address] Mar Kayla Lepe Kidney stone N20.0 and Pre-op testing Z0 1.818 IMMUNIZATIONS Vaccine Route Administration Date Status Influenza [...] REASON FOR REFERRAL No Information VITAL SIGNS Weight 133 lbs Mar, Height 64 in Mar, BMI 22.83 kg/m2 Mar, Heart Rate 67 /min Mar, Respiratory Rate 18 /min Mar, Temperature 98.1 degrees Fahrenheit Mar, Oximetry 98% Mar, Blood pressure systolic 122 mm Hg Mar, Blood pressure diastolic 64 mm Hg Mar, MEDICATIONS Medication SIG (Take, Route, Frequency, Duration) [...] 12 hrs for 10 day(s) Dec, Not-Taking Wayne 5-325 MG 1 tablet as needed Orally [...] Orally N ot-Taking PROCEDURES No Information RESULTS Component Value Reference Range UA URINALYSIS Reviewed date:04/20/2020 13:54:02 Interpretation: Performing Lab:[facility] [address] [address] , ,[place] [address] URINE CULTURE Reviewed date:04/21/2020 08:34:16 Interpretation: Performing Lab:[facility] [address] [facility] [address] , ,[id number] REASON FOR VISIT consented for bilateral ureteroscopy MEDICAL (GENERAL) HISTORY Type Description Date Medical [...] No Information FUNCTIONAL STATUS No Information ASSESSMENTS Encounter Date Diagnosis Assessment Notes Treatment Notes Treatm ent Clinical Notes Mar, Kidney stone (ICD-10 - N20.0) Mar, Pre-op testing (ICD-10 - Z01.818) Mar, Other Ureteroscopy mat erial was printed,Ureteroscopy home care material was printed PLAN OF TREATMENT Treatment Notes Test Name Order Date CBC - Complete Blood Count 2020-04-21 PT & APTT 2020-04-21 Basic Metabolic Profile (BMP) 2020-04-21 Future Test Test Name Order Date URINE CULTURE [id number] UA URINALYSIS [id number] Next Appt Details OR Reason: Insurance Providers Payer Name Payer Address Payer Phone Insured Name Patient Relati onship to Insured Coverage Start Date Coverage End Date [facility] CHOICE [address] [id number] [facility] [phone] self
--- OUTSIDE RECORDS SUMMARY | 2020-06-17 09:07 | CCD ---
Author Author [employer] [facility] Organization [facility] Address Unknown Phone Unavailable Care Team Providers Care Steak Tenderizer Machine Name Role Phone Roberth Kayla Unavailable PROBLEMS Type Condition ICD9-CM Code [id number] Code Onset Dates Condition S tatus SNOMED Code Notes Problem Staghorn calculus N20.0 Active 5951847 Problem Kidney stone N20.0 Active 98118791 Problem Nondependent tobacco use disorder 305.1 Active 226604205 ALLERGIES No Known Allergies ENCOUNTERS from 1978 to 2020-05-02 Encounter Location Date Provider Diagnosis [facility] Urology [address] [place] [address] 11 Apr Kayla Lepe Pre-op testing Z01.818 and Kidney stone N20.0 IMMUNIZATIONS Vaccine Route Administration Date Status Influenza [...] 12 hrs for 10 day(s) Dec, Not-Taking [place] 5-325 MG 1 tablet as needed Orally [...] Information RESULTS No Results REASON FOR VISIT COVID test MEDICAL (GENERAL) HISTORY Type Description Date Medical [...] Notes Treatment Notes Treatm ent Clinical Notes Apr, Pre-op testing (ICD-10 - Z01.818) Apr, Kidney stone (ICD-10 - N20.0) PLAN OF TREATMENT Treatment Notes Test Name Order Date Coronavirus 2019 NOSE (Send Out) COVID 2020-05-02 Next Appt Details Provider Name:Aaron Escalante, 2020-05-23 2 09:30:00 AM, [address], [place], [address], Insurance Providers Payer Name Payer Address Payer Phone Insured Name Patient Relati onship to Insured Coverage Start Date Coverage End Date [facility] [address] [id number] [facility] [phone] self
--- OUTSIDE RECORDS SUMMARY | 2020-06-17 09:07 | CCD ---
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 Name Role Phone Hadian, Omer Unavailable Unavailable Hadian, Omer Unavailable Unavailable Hadian, Omer Unavailable Unavailable Hadian, Omer Unavailable Unavailable Hadian, Omer Unavailable Unavailable Hadian, Omer Unavailable Unavailable Hadian, Omer Unavailable Unavailable Hadian, Omer Unavailable Unavailable Hadian, Omer Unavailable Unavailable Hadian, Omer Unavailable Unavailable Hadian, Omer Unavailable Unavailable Hadian, Omer Unavailable Unavailable Hadian, Omer Unavailable Unavailable Hadian, Omer Unavailable Unavailable Hadian, Omer Unavailable Unavailable Hadian, Omer Unavailable Unavailable Hadian, Omer Unavailable Unavailable Hadian, Omer Unavailable Unavailable Hadian, Omer Unavailable Unavailable Hadian, Omer Unavailable Unavailable Hadian, Omer Unavailable Unavailable Hadian, Omer Unavailable Unavailable Hadian, Omer Unavailable Unavailable Hadian, Omer Unavailable Unavailable Hadian, Omer Unavailable Unavailable Hadian, Omer Unavailable Unavailable Hadian, Omer Unavailable Unavailable Hadian, Omer Unavailable Unavailable Hadian, Omer Unavailable Unavailable Hadian, Omer Unavailable Unavailable Hadian, Omer Unavailable Unavailable Hadian, Omer Unavailable Unavailable Hadian, Omer Unavailable Unavailable Recore, Kayla Tamy WHNP Unavailable Unavailable Recore, Kayla Tamy WHNP Unavailable Unavailable Recore, Kayla Tamy WHNP Unavailable Unavailable Recore, Kayla Tamy WHNP Unavailable Unavailable Recore, Kayla Tamy WHNP Unavailable Unavailable Recore, Kayla Tamy WHNP Unavailable Unavailable Recore, Kayla Tamy WHNP Unavailable Unavailable Recore, Kayla Tamy WHNP Unavailable Unavailable Recore, Kayla Tamy WHNP Unavailable Unavailable Recore, Kayla Tamy WHNP Unavailable Unavailable Recore, Kayla Tamy WHNP Unavailable Unavailable Recore, Kayla Tamy WHNP Unavailable Unavailable Recore, Kayla Tamy WHNP Unavailable Unavailable Recore, Kayla Tamy WHNP Unavailable Unavailable Recore, Kayla Tamy WHNP Unavailable Unavailable Recore, Kayla Tamy WHNP Unavailable Unavailable Recore, Kayla Tamy WHNP Unavailable Unavailable Recore, Kayla Tamy WHNP Unavailable Unavailable Recore, Kayla Tamy WHNP Unavailable Unavailable Recore, Kayla Tamy WHNP Unavailable Unavailable Recore, Kayla Tamy WHNP Unavailable Unavailable Recore, Kayla Tamy WHNP Unavailable Unavailable Recore, Kayla Tamy WHNP Unavailable Unavailable Recore, Kayla Tamy WHNP Unavailable Unavailable Recore, Kayla Tamy WHNP Unavailable Unavailable Recore, Kayla Tamy WHNP Unavailable Unavailable Recore, Kayla Tamy WHNP Unavailable Unavailable Recore, Kayla Tamy WHNP Unavailable Unavailable Recore, Kayla Tamy WHNP Unavailable Unavailable Recore, Kayla Tamy WHNP Unavailable Unavailable Recore, Kayla Tamy WHNP Unavailable Unavailable Recore, Kayla Tamy WHNP Unavailable Unavailable Recore, Kayla Tamy WHNP Unavailable Unavailable Kayla L Recore, WRNP Unavailable Unavailable Re-disclosure Warning The records that you are about to access may contain information from federally-assisted alcohol or drug abuse programs. If such information is present, then the following federally mandated warning applies: This information has been disclosed to you from records protected by federal confidentiality rules (42 CFR part 2). The federal rules prohibit you from making any further disclosure of this information unless further disclosure is expressly permitted by the written consent of the person to whom it pertains or as otherwise permitted by 42 CFR part 2. A general authorization for the release of medical or other information is NOT sufficient for this purpose. The Federal rules restrict any use of the information to criminally investigate or prosecute any alcohol or drug abuse patient.The records that you are about to access may contain highly sensitive health information, the redisclosure of which is protected by Article 27-F of the [facility] Public Health law. If you continue you may have access to information: Regarding HIV / AIDS; Provided by facilities licensed or operated by the [facility] Office of Mental Health; or Provided by the [facility] Office for People With Developmental Disabilities. If such information is present, then the following [facility] mandated warning applies: This information has been disclosed to you from confidential records which are protected by state law. State law prohibits you from making any further disclosure of this information without the specific written consent of the person to whom it pertains, or as otherwise permitted by law. Any unauthorized further disclosure in violation of state law may result in a fine or chcf sentence or both. A general authorization for the release of medical or other information is NOT sufficient authorization for further disc losure. Encounters Encounter Providers Location Date Indications Data Source(s ) Unknown [address] [place] [address] 06/01/2020 12:00:00 AM EST eCW1 ([facility]) Unknown [address] [place] [address] 05/20/2020 12:00:00 AM EST eCW1 ([facility]) Outpatient CPSCAORT-LABEJN 05/18/2020 02:30:00 PM EST [facility] Outpatient Attender: Omer Harding ED-LABPNP 09:38:00 AM EST - 05/18/2020 09:39:00 AM EST [id number] [facility] [id number] Patient discharged. Outpatient Attender: WRNP Kayla Matos RecoreAttender: Kayla Leesre [facility] ED-LAB 05/18/2020 09:35:00 AM EST - 05/18/2020 09:36:00 AM EST N200 [facility] N200 Patient discharged. Unknown [address] [facility] [place] [address] 05/02/2020 12:00:00 AM EST eCW1 ([facility]) [place] [address] [facility] [place] [address] 04/21/2020 12:00:00 AM EST eCW1 ([facility]) Postop visit [address] [facility] [place] [address] 04/20/2020 12:00:00 AM EST eCW1 ([facility]) Unknown [address] [facility] [place] [address] 04/07/2020 12:00:00 AM EST eCW1 ([facility]) Unknown [address] [place] [address] 04/05/2020 12:00:00 AM EST eCW1 ([facility]) Unknown [address] [facility] [place] [address] 03/14/2020 12:00:00 AM EST eCW1 ([facility]) Unknown [address] [facility] [place] [address] 03/11/2020 12:00:00 AM EST eCW1 ([facility]) Outpatient [address] [facility] [place] [address] 03/10/2020 12:00:00 AM EST eCW1 ([facility]) Unknown [address] [facility] [place] [address] 03/10/2020 12:00:00 AM EST eCW1 [facility]) Medications Medication Brand Name Start Date Product Form Dose Route Admi nistrative Instructions Pharmacy Instructions Status Indications Reaction Description Data Source(s) Sulfamethoxazole 800 MG / Trimethoprim 160 MG Oral Tab let 800-160 mg SULFAMETHOXAZOLE/TRIMETHOPRIM 06/02/2020 12:00:00 AM EST tablet 14 TAKE ONE TABLET BY MOUTH TWICE A DAY - START 3 DAYS BEFORE THE PROCEDURE TAKE ONE TABLET BY MOUTH TWICE A DAY - START 3 DAYS BEFORE THE PROCEDURE SOLD: 06/13/2020 [facility] 100 mg 05/03/2020 12:00:00 AM EST capsule 30 TAKE ONE CAPSULE BY MOUTH EVERY DAY TAKE ONE CAPSULE BY MOUTH EVERY DAY SOLD: 05/05/2020 [facility] 100 mg 04/27/2020 12:00:00 AM EST capsule 14 TAKE ONE CAPSULE BY MOUTH TWICE A DAY FOR 7 DAYS TAKE ONE CAPSULE BY MOUTH TWICE A DAY FOR 7 DAYS SOLD: 04/27/2020 [facility] 150 mg 04/25/2020 12:00:00 AM EST tablet 3 TAKE ONE TABLET BY MOUTH EVERY 72 HOURS FOR 3 DOSES WHILE TAKING BACTRIM TAKE ONE TABLET BY MOUTH EVERY 72 HOURS FOR 3 DOSES WHILE TAKING BACTRIM SOLD: 04/27/2020 [facility] Sulfamethoxazole 800 MG / Trimethoprim 160 MG Oral Tab let 800-160 mg SULFAMETHOXAZOLE/TRIMETHOPRIM 04/25/2020 12:00:00 AM EST tablet 14 TAKE ONE TABLET BY MOUTH TWICE A DAY TAKE ONE TABLET BY MOUTH TWICE A DAY SOLD: 04/27/2020 [facility] 5 mg 04/07/2020 12:00:00 AM EST tablet 30 TAKE ONE TABLET BY MOUTH THREE TIMES A DAY NEEDED FOR BLADDER SPASM TAKE ONE TABLET BY MOUTH THREE TIMES A DAY NEEDED FOR BLADDER SPASM SOLD: 04/07/2020 [facility] 5-325 mg 04/07/2020 12:00:00 AM EST tablet 20 TAKE 1 TABLET BY MOUTH EVERY 6 HOURS NEEDED FOR MODERATE-SEVERE PAIN MAX DAILY DOSE = 4 TAKE 1 TABLET BY MOUTH EVERY 6 HOURS NEEDED FOR MODERATE-SEVERE PAIN MAX DAILY DOSE = 4 SOLD: 04/07/2020 [facility] Sulfamethoxazole 800 MG / Trimethoprim 160 MG Oral Tab let 800-160 mg SULFAMETHOXAZOLE/TRIMETHOPRIM 03/24/2020 12:00:00 AM EST tablet 10 TAKE ONE TABLET BY MOUTH TWICE A DAY STARTING 2 DAYS BEFORE THE NEPHROSTOMY TAKE ONE TABLET BY MOUTH TWICE A DAY STARTING 2 DAYS BEFORE THE NEPHROSTOMY SOLD: 03/24/2020 [facility] 8 mg 03/24/2020 12:00:00 AM EST tablet 9 TAKE ONE TABLET BY MOUTH EVERY DAY NEEDED FOR NAUSEA TAKE ONE TABLET BY MOUTH EVERY DAY NEEDED FOR NAUSE A SOLD: 03/24/2020 [facility] 100 mg 03/24/2020 12:00:00 AM EST capsule 14 TAKE ONE CAPSULE BY MOUTH EVERY DAY FOR 14 DAYS TAKE ONE CAPSULE BY MOUTH EVERY DAY FOR 14 DAYS SOLD: 03/24/2020 [facility] 100 mg 03/10/2020 12:00:00 AM EST tablet 10 TAKE ONE TABLET BY MOUTH EVERY DAY FOR 10 DAYS TAKE ONE TABLET BY MOUTH EVERY DAY FOR 10 DAYS SOLD: 020 [facility] Sulfamethoxazole 800 MG / Trimethoprim 160 MG Oral Tab let 800-160 mg SULFAMETHOXAZOLE/TRIMETHOPRIM 03/07/2020 12:00:00 AM EST tablet 20 TAKE ONE TABLET BY MOUTH TWICE A DAY FOR 10 DAYS TAKE ONE TABLET BY MOUTH TWICE A DAY FOR 10 DAYS SOLD: 03/07/2020 [facility] 150 mg 02/29/2020 12:00:00 AM EST tablet 2 TAKE ONE TABLET BY MOUTH EVERY 72 HOURS FOR 3 DOSES TAKE ONE TABLET BY MOUTH EVERY 72 HOURS FOR 3 DOSES SO LD: 03/01/2020 [facility] 150 mg 02/29/2020 12:00:00 AM EST tablet 1 TAKE ONE TABLET BY MOUTH EVERY 72 HOURS FOR 3 DOSES TAKE ONE TABLET BY MOUTH EVERY 72 HOURS FOR 3 DOSES SO LD: 03/07/2020 [facility] 500 mg 02/12/2020 12:00:00 AM EDT tablet 11 TAKE ONE AND ONE-HALF TABLETS BY MOUTH EVERY DAY FOR 7 DAYS TAKE ONE AND ONE-HALF TABLETS BY MOUTH E VERY DAY FOR 7 DAYS SOLD: 02/12/2020 [facility] 250 mg 01/26/2020 12:00:00 AM EDT tablet 5 TAKE ONE TABLET BY MOUTH EVERY DAY FOR 5 DAYS TAKE ONE TABLET BY MOUTH EVERY DAY FOR 5 DAYS SOLD: 01/26/2020 [facility] 0.4 mg 10/23/2019 12:00:00 AM EDT capsule 30 TAKE ONE CAPSULE BY MOUTH EVERY DAY NEEDED FOR RENAL COLIC TAKE ONE CAPSULE BY MOUTH EVERY DAY N EEDED FOR RENAL COLIC SOLD: 10/25/2019 [facility] 0.4 mg 06/23/2019 12:00:00 AM EST capsule 30 TAKE ONE CAPSULE BY MOUTH EVERY DAY NEEDED FOR RENAL COLIC TAKE ONE CAPSULE BY MOUTH EVERY DAY N EEDED FOR RENAL COLIC SOLD: 06/23/2019 [facility] 12.5 mg 06/23/2019 12:00:00 AM EST capsule 90 TAKE ONE CAPSULE BY MOUTH EVERY DAY TAKE ONE CAPSULE BY MOUTH EVERY DAY SOLD: 06/23/2019 [facility] 12.5 mg 06/23/2019 12:00:00 AM EST capsule 90 TAKE ONE CAPSULE BY MOUTH EVERY DAY TAKE ONE CAPSULE BY MOUTH EVERY DAY SOLD: 10/25/2019 [facility] 150 mg 12/10/2018 12:00:00 AM EDT tablet extended release 12 hr 30 TAKE 1 TABLET BY MOUTH EVERY MORNING TAKE 1 TABLET BY MOUTH EVERY MORNING SOLD: 06/23/2019 [facility] 4 mg 12/02/2018 12:00:00 AM EDT tablet,disintegrating 9 DISSOLVE ONE TABLET ON TONGUE EVERY 6 HOURS NEEDED FOR NAUSEA DISSOLVE ONE TABLET ON TONGUE EVERY 6 HOURS NEEDED FOR NAUSEA SOLD: 06/23/2019 [facility] 4 mg 12/02/2018 12:00:00 AM EDT tablet,disintegrating 9 DISSOLVE ONE TABLET ON TONGUE EVERY 6 HOURS NEEDED FOR NAUSEA DISSOLVE ONE TABLET ON TONGUE EVERY 6 HOURS NEEDED FOR NAUSEA SOLD: 10/25/2019 [facility] Insurance Providers Payer name Policy type / Coverage type Policy ID Covered alliance party ID Covered alliance party's relationship to herrera Policy Herrera Plan Information [facility] CHOICE PLUS [id number] SP [id number] [facility] 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 [id number] [facility] CHOICE PLUS [id number] SP [id number] [employer] [place] 306/806 [id number] SP [id number] [facility] [id number] 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 [employer] [place] [id number] 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 [id number] [employer] H [id number] Self [facility] O [id number] S [id number] [employer] B [id number] S [employer] [place] 306/806 [id number] SP [id number] [employer] [place] 306/806 [id number] SP [id number] BCBS [facility] O [id number] O [id number] S [id number] Problems, Conditions, and Diagnoses Code Display Name Description Problem Type Effective Dates Data Source(s) N39.0 Urinary tract infectious disease UTI (urinary tract in fection) Problem 05/27/2020 12:00:00 AM EST [facility] ([facility]) N20.0 Kidney stone Kidney stone Problem 04/20/2020 12:00:00 A M EST [facility] ([facility]) 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 Problem 03/10/2020 12:00:00 AM EST [facility] ([facility]) Z01.812 Encounter for preprocedural laboratory e xamination ENCOUNTER FOR PREPROCEDURAL LABORATORY EXAMINATION Diagnosis 05/18/2020 09:38:00 AM [facility] Results ID Date Data Source [id number] 06/13/2020 12:00:00 PM EST [facility] Name Value Range Interpretation Code Description Data Penny rce(s) Supporting Document(s) SARS coronavirus 2 RNA Not Detected [facility] This lab was ordered by [facility] and reported by [facility]. ID Date Data Source [id number] 05/20/2020 09:42:00 AM EST [facility] Name Value Range Interpretation Code Description Data Penny rce(s) Supporting Document(s) Urine Culture [facility] ospital ID Date Data Source [id number] 05/20/2020 02:51:00 PM [facility] spital Name Value Range Interpretation Code Description Data Penny rce(s) Supporting Document(s) Urine Culture [facility] ID Date Data Source [id number] 05/18/2020 11:00:00 AM [facility] Name Value Range Interpretation Code Description Data Penny rce(s) Supporting Document(s) Color,Urine Colorl-Dk Y Normal (applies to non-numeric res ults) [facility] Clarity,Urine Clear Normal (applies to non-numeric re sults) [facility] Specific [place],Urine 1.005-1.030 Normal (applies to non- numeric results) [facility] pH,Urine 5.0-8.0 Normal (applies to non-numeric resul ts) [facility] Protein,Urine Negative Normal (applies to non-numeric re sults) [facility] Glucose,Urine Negative Normal (applies to non-numeric re sults) [facility] Ketones,Urine Negative Normal (applies to non-numeric re sults) [facility] Blood,Urine Negative [facility] l Bilirubin,Urine Negative Normal (applies to non-numeric results) [facility] Urobilinogen,Urine 0.2-1.0 Normal (applies to non-numer ic results) [facility] Leukocyte Esterase,Urine Negative [facility] Nitrite,Urine Negative Normal (applies to non-numeric re sults) [facility] ID Date Data Source [id number] 05/18/2020 11:00:00 AM [facility] Name Value Range Interpretation Code Description Data Penny rce(s) Supporting Document(s) RBC,Urine None Seen [facility] WBC,Urine None Seen [facility] Casts,Urine None Seen Normal (applies to non-numeric resu lts) [facility] Squamous Cells,Urine None Seen [facility] Bacteria,Urine None Seen [facility] ital Mucus,Urine None Seen [facility] l ID Date Data Source [id number] 05/18/2020 10:48:00 AM [facility] Name Value Range Interpretation Code Description Data Penny rce(s) Supporting Document(s) PT 9.2-11.7 Normal (applies to non-numeric results) [facility] INR Normal (applies to non-numeric results) [facility] The use of INR is restricted to patients on stable oral anticoagulant. Therapeutic Range: 2.0 - 3.0 High Risk Range: 2.5 - 3.5 ID Date Data Source [id number] 05/18/2020 10:48:00 AM [facility] Name Value Range Interpretation Code Description Data Penny rce(s) Supporting Document(s) PTT 23.8-37.9 Normal (applies to non-numeric results) [facility] ID Date Data Source [id number] 05/18/2020 10:42:00 AM [facility] Name Value Range Interpretation Code Description Data Penny rce(s) Supporting Document(s) Sodium 139 mmol/L 136-145 Normal (applies to non-numeric resul ts) [facility] Potassium 3.5-5.1 Normal (applies to non-numeric resul ts) [facility] Chloride 103 mmol/L 98-107 Normal (applies to non-numeric resul ts) [facility] Carbon Dioxide CO2 21-32 Normal (applies to non-numer ic results) [facility] Anion Gap 5.0-16.0 Normal (applies to non-numeric resul ts) [facility] BUN 11 mg/dL 7-18 Normal (applies to non-numeric results) [facility] Creatinine,Serum 0.7-1.2 Normal (applies to non-numeric results) [facility] GFR >60 Normal (applies to non-numeric results) [facility] Glucose Level 119 mg/dL 60-99 Above high normal [facility] Reference range is only applicable when patient is fasting Note the following drug interference: Sulfasalazine Sulfapyridine Can see falsely depressed Can see falsely elevated result with up to 17% results with up to 11% decrease in measurement increase in measurement Recommend patients be collected for this test prior to administration of either drug. Calcium 8.5-10.1 Normal (applies to non-numeric resul ts) [facility] ID Date Data Source [id number] 05/18/2020 10:09:00 AM EST [facility] Name Value Range Interpretation Code Description Data [facility] rce(s) Supporting Document(s) White Blood Count 3.5-10.5 Normal (applies to non-numeri c results) [facility] Red Blood Count 3.90-5.00 Normal (applies to non-numeric results) [facility] Hemoglobin 12.0-15.5 Normal (applies to non-numeric resul ts) [facility] Hematocrit 34.9-44.5 Normal (applies to non-numeric resul ts) [facility] Mean Corpuscular Volume 81.2-95.1 Normal (applies to non- numeric results) [facility] Mean Corpuscular Hgb 25.6-32.2 Normal (applies to non-num janna results) [facility] Mean Corpuscular Hgb Conc 32.0-36.0 Normal (applies to no n-numeric results) [facility] Red Cell Distribution Width 11.9-15.5 Normal (appli es to non-numeric results) [facility] Platelet Count 389 x10 3/uL 150-450 Normal (applies to non-numeric results) [facility] Mean Platelet Volume 9.4-12.4 Normal (applies to non-num janna results) [facility] Neutrophils% (Auto) 31.0-71.0 Normal (applies to non-nume frank results) [facility] Lymphocytes% (Auto) 20.0-55.0 Normal (applies to non-nume frank results) [facility] Monocytes% (Auto) 4.0-12.0 Normal (applies to non-numeri c results) [facility] Eosinophils% (Auto) 1.0-8.0 Normal (applies to non-nume frank results) [facility] Basophils% (Auto) 0.0-2.0 Normal (applies to non-numeri c results) [facility] Immature Granulocytes% (Auto) 0.0-2.0 Normal (yolanda lies to non-numeric results) [facility] Neutrophils# (Auto) 1.50-6.20 Normal (applies to non-nume frank results) [facility] Lymphocytes# (Auto) 1.20-4.00 Normal (applies to non-nume frank results) [facility] Monocytes# (Auto) 0.00-0.90 Normal (applies to non-numeri c results) [facility] Eosinophils# (Auto) 0.00-0.50 Normal (applies to non-nume frank results) [facility] Basophils# (Auto) 0.00-0.20 Normal (applies to non-numeri c results) [facility] Immature Granulocytes# (Auto) 0.00-7.00 No rmal (applies to non-numeric results) [facility] ID Date Data Source [id number] 05/19/2020 03:00:00 PM EST [facility] Name Value Range Interpretation Code Description Data Penny rce(s) Supporting Document(s) SARS-CoV-2 RNA INHOUSE Negative [facility] THIS IS A [facility] REPORTABLE COMMUNICABLE DISEASE. Results called 05/19/20 Uli,YANY/MARELY MATHIAS read back information to LAB.BEAJA Testing was performed using the [employer] COVID-19 MDx Assay. This test has been authorized by FDA under an (Emergency Use Authorization) EUA for use by authorized laboratories for individuals who are suspected of COVID-19 by their healthcare provider. This test is only authorized for the duration of the declaration that circumstances exist justifying the authorization of emergency use of in vitro diagnostic tests for detection and/or diagnosis of SARS-CoV-2. Methodology: Endpoint RT-PCR. Fact sheets for this EUA assay can be found at the following links: Providers: https://www.fda.gov/media/993536/download Patients : https://www.fda.gov/media/601782/download THIS IS A [facility] REPORTABLE COMMUNICABLE DISEASE Positive results are indicative of the presence of [id number]; clinical correlation with patient history and other diagnostic information is necessary to determine patient infection status. The agent detected may not be the definite cause of disease. Positive results do not rule out bacterial infection or co-infection with other viruses. ID Date Data Source [id number] 05/18/2020 09:10:00 AM EST [facility] Name Value Range Interpretation Code Description Data Penny rce(s) Supporting Document(s) Respiratory specimen severe acute respir atory syndrome coronavirus 2 (SARS-CoV-2) RNA Positive (qualifier value) [facility] This lab was ordered by [facility] servando and reported by . ID Date Data Source URINE CULTURE 04/20/2020 12:00:00 AM EST eCW1 ([facility] Name Value Range Interpretation Code Description Data Penny rce(s) Supporting Document(s) URINE CULTURE eCW1 ([facility]) ID Date Data Source UA URINALYSIS 04/20/2020 12:00:00 AM EST eCW1 ([facility]) Name Value Range Interpretation Code Description Data Penny rce(s) Supporting Document(s) UA URINALYSIS eCW1 ([facility]) ID Date Data Source [id number] 04/01/2020 09:50:00 AM EST [facility] Name Value Range Interpretation Code Description Data Penny rce(s) Supporting Document(s) SARS coronavirus 2 RNA [facility] This lab was ordered by [facility] and reported by [facility]. ID Date Data Source [id number] 07/20/2019 12:00:00 AM EDT [facility] Name Value Range Interpretation Code Description Data Penny rce(s) Supporting Document(s) 2019-nCoV N XXX Ql MARTHA N2 [facility] This lab was ordered by [facility] and reported by [facility]. Procedure Social History Code Duration Value Status Description Data Source(s ) Smoking 04/20/2020 12:00:00 AM EST Current Smoker completed Curre nt Smoker eCW1 ([facility]) Smoking 04/20/2020 12:00:00 AM EST Current Smoker completed Curre nt Smoker eCW1 ([facility]) Smoking 04/20/2020 12:00:00 AM EST Current Smoker completed [facility]re [facility] Smoker [facility] [facility]) Smoking 04/20/2020 12:00:00 AM EST Current Smoker completed Curre nt Smoker eCW1 ([facility]) Smoking 04/20/2020 12:00:00 AM EST Current Smoker completed Curre nt Smoker eCW1 ([facility]) Smoking 03/10/2020 12:00:00 AM EST Current Smoker completed Curre nt Smoker eCW1 ([facility]) Smoking 03/10/2020 12:00:00 AM EST Current Smoker completed Curre nt Smoker eCW1 ([facility]) Smoking 03/10/2020 12:00:00 AM EST Current Smoker completed Curre nt Smoker eCW1 ([facility]) Smoking 03/10/2020 12:00:00 AM EST Current Smoker completed Curre nt Smoker eCW1 ([facility]) Smoking 03/10/2020 12:00:00 AM EST Current Smoker completed Curre nt Smoker eCW1 ([facility]) Smoking 03/10/2020 12:00:00 AM EST Current Smoker completed Curre nt Smoker eCW1 ([facility]) Vital Signs ID Date Data Source UNK Name Value Range Interpretation Code Description Data Source(s) Diastolic blood pressure 64 mm[Hg] 64 mm[Hg] eCW1 ([facility]) Systolic blood pressure 122 mm[Hg] 122 mm[Hg] e CW1 ([facility]) Body temperature 98.1 [degF] 98.1 [degF] eCW1 ( [facility]) Respiratory rate 18 /min 18 /min eCW1 ([facility]) Heart rate 67 /min 67 /min eCW1 ([facility]) Body mass index (BMI) [Ratio] 22.83 kg/m2 22.83 kg/m2 W1 ([facility]) Body height 64 [in_i] 64 [in_i] eCW1 ([facility] Body weight 133 [lb_av] 133 [lb_av] eCW1 ([facility]) Diastolic blood pressure 72 mm[Hg] 72 mm[Hg] eCW1 ([facility]) Systolic blood pressure 112 mm[Hg] 112 mm[Hg] e CW1 ([facility]) Body temperature 97.6 [degF] 97.6 [degF] eCW1 ( [facility]) Respiratory rate 18 /min 18 /min eCW1 ([facility]) Heart rate 85 /min 85 /min eCW1 ([facility]) Body mass index (BMI) [Ratio] 23.34 kg/m2 23.34 kg/m2 W1 ([facility]) Body height 64 [in_i] 64 [in_i] eCW1 ([facility]) Body weight 136 [lb_av] 136 [lb_av] eCW1 ([facility]) ID Date Data Source [id number] 05/19/2020 03:00:00 PM JASON Hilario spital Name Value Range Interpretation Code Description Data Source(s) Weight (Calculated Kilograms) 60.33 60.33 [facility] Height (Calculated Centimeters) 154.94 154. 94 [facility] Body Mass Index (BMI) 25.1 25.1 [facility] Weight (Calculated Kilograms) 60.33 60.33 [facility] Height (Calculated Centimeters) 154.94 154. 94 [facility] Body Mass Index (BMI) 25.1 25.1 [facility] ID Date Data Source [id number] 05/20/2020 02:51:00 PM JASON monahantal Name Value Range Interpretation Code Description Data Source(s) Weight (Calculated Kilograms) 60.33 60.33 [facility] Height (Calculated Centimeters) 154.94 154. 94 [facility] Body Mass Index (BMI) 25.[address]
--- OUTSIDE RECORDS SUMMARY | 2020-06-17 09:07 | CCD ---
Author Author [facility] Organization [email or web address] [facility] Address Unknown Phone Unavailable Care Team Providers Care Edge Inker Uppers Name Role Phone Nabeelkeri Kayla Unavailable PROBLEMS Type Condition ICD9-CM Code [id number] Code Onset Dates Condition S tatus W/U Status Risk SNOMED Code Notes Problem Kidney stone N20.0 Active confirmed 7689332 7 Problem UTI (urinary tract infection) N39.0 Active confirm ed [id number] Problem Nondependent tobacco use disorder 305.1 Active confirmed [id number] ALLERGIES No Known Allergies ENCOUNTERS from 1980 to 2020-06-02 Encounter Location Date Provider Diagnosis [facility] Urology [address] [place] [address] May Kayla Lepe IMMUNIZATIONS Vaccine Route Administration Date [...] 12 hrs for 10 day(s) Dec, Not-Taking [place] 5-325 MG 1 tablet as needed Orally [...] Information RESULTS No Results REASON FOR VISIT Back to work note MEDICAL (GENERAL) HISTORY Type Description Date Medical [...] PLAN OF TREATMENT Next Appt Details Provider Name:Manfred Nielsen, 2020-06 11:00:00 AM, [address], [place], [address], Insurance Providers Payer Name Payer Address Payer Phone Insured Name Patient Relati onship to Insured Coverage Start Date Coverage End Date [facility] [address] [id number] [facility] [id number]
--- OUTSIDE RECORDS SUMMARY | 2020-06-17 09:07 | CCD ---
Author Author [facility] Organization [facility] Address Unknown Phone Unavailable Care Team Providers Care Psych Coordinator Name Role Phone Bong Pinon Unavailable PROBLEMS Type Condition ICD9-CM Code [id number] Code Onset Dates Condition S tatus SNOMED Code Notes Problem Nondependent tobacco use disorder 305.1 Active 752369718 Problem Staghorn calculus N20.0 Active [id number] ALLERGIES No Known Allergies ENCOUNTERS from 1980 to 2020-04-06 Encounter Location Date Provider Diagnosis [facility] Urology [address] [place] [address] Mar Bong Pinon IMMUNIZATIONS Vaccine Route Administration Date Status Influenza [...] Active Mirena 20 MCG/24HR Intrauterine Act betzy Eidson 5-325 MG 1 tablet as needed Orally [...] Information RESULTS No Results REASON FOR VISIT 04/20/2020 appt MEDICAL (GENERAL) HISTORY Type Description Date Medical History Nicotine dependence Medical History Right Branchial Cleft Cyst Medical History Kidney Stone Medical History Nephrocalcinosis Surgical History cyst removal Surgical History Colposcopy Hospitalization History Cildbirth Goals Section No Information Health Concerns No Information MEDICAL EQUIPMENT No Information MENTAL STATUS No Information FUNCTIONAL STATUS No Information ASSESSMENTS No Information PLAN OF TREATMENT Next Appt Details Provider Name:Bong Pinon, 2020-04-20 01:00:00 PM, [address], [place], [address], Insurance Providers Payer Name Payer Address Payer Phone Insured Name Patient Relati onship to Insured Coverage Start Date [facility]age End Date [id number] [facility] [id number] [address]
--- OUTSIDE RECORDS SUMMARY | 2020-06-17 09:07 | CCD ---
Author Author [facility] Organization [facility] [facility] Address Unknown Phone Unavailable Care Team Providers Care Administrator Of Home Health Name Role Phone RavinDeandrein Unavailable PROBLEMS Type Condition ICD9-CM Code [id number] Code Onset Dates Condition S tatus W/U Status Risk SNOMED Code Notes Problem Kidney stone N20.0 Active confirmed [id number] 7 Problem UTI (urinary tract infection) N39.0 Active confirm ed 98554440 Problem Nondependent tobacco use disorder 305.1 Active confirmed [id number] ALLERGIES No Known Allergies ENCOUNTERS from 1978 to 2020-05-28 Encounter Location Date Provider Diagnosis [facility] Urology [address] [place] [address] [place] [address] Apr Jerad Alicia Kidney stone N20.0 and UTI (urinary trac t infection) N39.0 IMMUNIZATIONS Vaccine Route Administration Date Status Influenza [...] 12 hrs for 10 day(s) Dec, Not-Taking [place] 5-325 MG 1 tablet as needed Orally [...] Information RESULTS No Results REASON FOR VISIT Positve COVID MEDICAL (GENERAL) HISTORY Type Description Date Medical [...] Treatment Notes Treatm ent Clinical Notes Apr, Kidney stone (ICD-10 - N20.0) Apr, UTI (urinary tract infection) (ICD-10 - N39.0) PLAN OF TREATMENT Treatment Notes Test Name Order Date URINE CULTURE 2020-05-20 Insurance Providers Payer Name Payer Address Payer Phone Insured Name Patient Relati onship to Insured Coverage Start Date Coverage End Date [facility] [address] [id number] [facility] [id number]
[2020-06-17] MEDS ORDERED: CONRAY-60 60% 50ML VIAL (Q9961) As Ordered ONE (09:34)
[2020-06-17] MEDS ORDERED: SCOPOLAMINE 1MG TRANSDERMAL PATCH As Ordered ONE (09:50)
[2020-06-17] MEDS ORDERED: fentaNYL 100 MCG/2 ML INJECTION (J3010) As Ordered ONE ×2 (10:49→12:34)
[2020-06-17] MEDS ORDERED: SCOPOLAMINE 1MG TRANSDERMAL PATCH TOP ONE (10:55)
[2020-06-17] MEDS ORDERED: fentaNYL 100 MCG/2 ML INJECTION (J3010) IV PRN (14:00)
[2020-06-17] MEDS ORDERED: LR 1,000 ML IV SCH (14:00)
[2020-06-17] MEDS ORDERED: oxyCODONE 5MG TAB PO PRN (14:00)
[2020-06-17] MEDS ORDERED: ONDANSETRON 4MG/2ML VIAL IV PRN (14:00)
[2020-06-17] MEDS ORDERED: oxyBUTYnin 5 MG TAB As Ordered ONE (14:06)
[2020-06-17] MEDS ORDERED: OXYB5TAB10 PO (14:10)
[2020-06-17] MEDS ORDERED: OXYC1TAB23 PO (14:10)
[2020-06-17] MEDS ORDERED: METOCLOPRAMIDE INJ 10MG/2ML VIAL (J2765 PER 1) As Ordered ONE (14:11)
[2020-06-17] MEDS ORDERED: METOCLOPRAMIDE INJ 10MG/2ML VIAL (J2765 PER 1) IV PRN (14:20)
[2020-06-17] MEDS ORDERED: FLOM0.4C39 PO (14:31)
[2020-06-17] MEDS ORDERED: PERCOCET 5MG/325MG TAB PO PRN (15:00)
[2020-06-17] MEDS ORDERED: oxyBUTYnin 5 MG TAB PO PRN (15:00)
--- NOTE | 2020-06-17 15:03 | REP ---
INDICATION: BILATERAL, STENT, CYSTO, LASER LITHO. COMPARISON: Comparison 04/06/2020 TECHNIQUE: Four images from C-arm fluoroscopy provided to Dr. Alicia of the urology division are reviewed. FINDINGS: Initial image shows a ureteral catheter and wire into the upper pole of the right kidney 2nd image shows a pigtail stent coiled in that kidney. A left ureteral catheter and wire seen into the left kidney on image 2. On image 3 the left ureteral stent shows it is coil in the renal pelvic region. On image 4 both stents are noted proximally in the renal pelves and distally in the bladder. Incidental note is of an IUD in the mid pelvis. IMPRESSION: Status post placement bilateral double pigtail stent. Fluoroscopy time 1 minutes 6 seconds. <Electronically signed by Carlos Henson > 06/17/20 [id number]
--- NOTE | 2020-06-17 15:10 | RO ---
OPERATIVE NOTE DATE OF OPERATION: 06/17/2020 PREOPERATIVE DIAGNOSIS: Bilateral kidney stones. POSTOPERATIVE DIAGNOSIS: Bilateral kidney stones. duplicated left collecting system. PROCEDURE: Cystoscopy, bilateral ureteroscopy with laser lithotripsy and basket extraction of stones, bilateral retrograde pyelograms with intraop interpretation of images, right ureteral stent exchange, left ureteral stent placement. SURGEON: Jerad Alicia MD HAND TACKER: None. ANESTHESIA: General. OPERATIVE INDICATIONS: This is a 40-year-old female with bilateral kidney stones who underwent a right percutaneous nephrolithotomy approximately two months ago. She still had some residual stones in the lower pole of her right kidney. She also had a large stone in her left kidney. She is brought to the operating room today for treatment. DESCRIPTION OF PROCEDURE: The patient was brought to the operating room and general anesthesia was induced. Prophylactic antibiotics were infused. She was placed in the dorsal lithotomy position and prepped and draped in usual sterile fashion. The previously placed right ureteral stent was seen and removed. I then advanced a guidewire up the right collecting system. I then advanced a ureteral access sheath up the right collecting system. I went up the access sheath with a flexible ureteroscope and then examined the right kidney thoroughly. There was an approximately 1.5 cm size stone fragment remaining in the lower pole of the kidney. This stone fragment was repositioned to the mid pole to make it easier to laser it. At this point I utilized an Excalibur laser fiber to fragment the stone into smaller pieces. Of note, the majority of the stone was dusted. Some of the stone fragments were fragmented small enough where it was able to remove them with a basket. Once done the only stones remaining were very tiny stone fragments that should be able to pass easily. A retrograde pyelogram was then performed and was notable for mild to moderate right hydronephrosis with no extravasation. At this point I withdrew the ureteroscope along with the access sheath and no additional stones were seen inside the ureter. I then utilized the guidewire to advance the 7-Cambodian x 22-32 cm JJ ureteral stent up into the right collecting system. At this point I turned my attention to the left side. Of note, while examining the patient's bladder the patient had two left ureteral orifices indicating a completely duplicated left collecting system. I advanced the guidewire up the more lateral ureteral orifice and this went into the lower renal moiety. At this point it was indeed the lower renal moiety that contained the kidney stone. I then advanced the ureteral access sheath up into the ureter. I went up the access sheath with flexible ureteroscope and then examined the lower renal moiety. There was an approximately 1.8 cm size stone seen. I then utilized the laser to dust the stone into tiny pieces. I did fragment some of the stone and removed some of it with the basket. Once done the only stones remaining were very tiny stone pieces that should be able to pass on their own. I then shot a retrograde pyelogram and it was notable for mild left hydronephrosis with no extravasation. I withdrew the ureteroscope along with the access sheath and no additional stones were seen inside the ureter. I then utilized the guidewire to advance a 7-Cambodian x 22-32 cm JJ ureteral stent up the left collecting system. The wire was removed and there were adequate curls of the stent in the left renal pelvis and in the bladder. The bladder was emptied of all fluids. This marked the conclusion of the procedure. The patient was taken out of the dorsal lithotomy position, awakened from anesthesia and transported to the recovery room in stable condition. ESTIMATED BLOOD LOSS: 5 mL. COMPLICATIONS: None. SPECIMEN: Kidney stone fragments. PLAN: The patient will follow up in urology clinic in approximately 3-4 weeks for stent removal. We will get a KUB prior to removing her stents. CINDI
[2020-06-17 15:15] VITALS: BP 115/71
== END 2020-06-17 15:15 | disposition home or self-care (01) ==
LOC: M SDC 09:02
PROVIDERS: ATTEND Urology
DX: N20.0 Calculus of kidney (principal); K21.9 Gastro-esophageal reflux disease without esophagitis; F32.9 Major depressive disorder, single episode, unspecified; F17.218 Nicotine dependence, cigarettes, with other nicotine-induced disorders; Z79.899 Other long term (current) drug therapy
CPT/HCPCS: 52356; 74420; 81025; 82365; 88300; C1769; C1894; C2617; J0131; J0690; J1100; J2250; J2370; J2405; J2765; J3010; Q9961

== ENCOUNTER 2020-06-20 10:28 | Inpatient (IN) | payer OTHER ==
[~2020-06-20] VITALS: Ht 162.6 cm; Wt 61.1 kg
[~2020-06-20 10:28] MED LIST changes: -ACETAMINOPHEN 1000MG 100ML IV BTL (OFIRMEV) (J0131 PER 10MG) As Ordered ONE; -LIDOCAINE 2% 100MG/5ML SDV (FOR ANES.) As Ordered ONE; -LR 1,000 ML IV ONE; -MIDAZOLAM INJ 2MG/2ML VIAL (J2250 PER 1MG) As Ordered ONE; -ONDANSETRON 4MG/2ML VIAL As Ordered ONE; +OXYC1TAB23 PO; +PANTOPRAZOLE 40MG VIAL (C9113 PER 1) IV SCH; -PHENYLephrine 500MCG 5ML (100MCG/ML) SYRINGE As Ordered ONE; -ceFAZolin SOD 2 GM in IV 1 EA IV ONE; -dexameTHASONE 4 MG/ML 1ML VIAL (J1100 PER 1MG) As Ordered ONE; -ePHEDrine SULFATE 25 MG/5 ML(5MG/ML) SYRINGE As Ordered ONE; -propofoL 200 MG/20 ML VIAL As Ordered ONE
[2020-06-20] MEDS ORDERED: NS 1,000 ML IV ONE ×2 (12:05→13:25)
[2020-06-20 12:18] LABS: HEMOGLOBIN 13.4 g/dl (12.0-15.5); MEAN CORPUSCULAR HEMOGLOBIN 30.7 pg (27.0-33.0); MEAN CORPUSCULAR HGB CONC 32.7 g/dl (32.0-36.5); MEAN CORPUSCULAR VOLUME 93.8 fl (80.0-96.0); PLATELET COUNT, AUTOMATED 330 10^3/uL (150-450); RED BLOOD COUNT 4.37 10^6/uL (4.00-5.40); WHITE BLOOD COUNT 13.1 10^3/uL (4.0-10.0)
[2020-06-20] MEDS ORDERED: ACETAMINOPHEN 325 MG TAB PO ONE (12:20)
--- NOTE | 2020-06-20 12:27 | REP ---
INDICATION: flank COMPARISON: 02/25/2020 TECHNIQUE: Axial noncontrast images from the lung bases to the pubic symphysis with coronal and sagittal reformations. This CT examination was performed using the following dose reduction techniques: Automated exposure control, adjustment of mA and/or kv according to the patient's size, and use of iterative reconstruction technique. FINDINGS: Bilateral ureteral stents are identified in satisfactory position. There is evidence for chronic medullary nephrocalcinosis and no obvious perinephric stranding, acute hydroureteronephrosis, or obvious obstructing ureteral calculus. Large staghorn calculi on the prior examination have been removed with small residual nonobstructing nephroliths now identified. Liver, spleen, pancreas, gallbladder, and bilateral adrenal glands are relatively normal/stable for noncontrast evaluation. The enteric system is without obstruction or obvious acute inflammatory process. Normal terminal ileum and appendix identified in the right lower quadrant. Diverticulosis noted without acute diverticulitis. Pelvis demonstrates normal bladder and age-appropriate uterus/adnexa with IUD in satisfactory position. No ascites. No free air. No obvious adenopathy. Abdominal aorta without aneurysm. Musculoskeletal structures are intact. Lung bases are clear. IMPRESSION: 1. Bilateral ureteral stents in satisfactory position. Previously noted large calculi and staghorn calculus have resolved with minimal residual nonobstructing intrarenal calculi and evidence for chronic medullary sponge kidney/nephrocalcinosis. <Electronically signed by Brandon Alexander > 06/20/20 [id number]
[2020-06-20 12:52] LABS: ALBUMIN 3.2 GM/DL (3.2-5.2); ALT/SGPT 15 U/L (12-78); BILIRUBIN,TOTAL 0.5 MG/DL (0.2-1.0); BLOOD UREA NITROGEN 12 MG/DL (7-18); CALCIUM LEVEL 8.9 MG/DL (8.5-10.1); CARBON DIOXIDE LEVEL 29 MEQ/L (21-32); CHLORIDE LEVEL 101 MEQ/L (98-107); CREATININE FOR GFR 0.79 MG/DL (0.55-1.30); GLOMERULAR FILTRATION RATE > 60.0 (>58); GLUCOSE, FASTING 92 MG/DL (70-100); POTASSIUM SERUM 4.2 MEQ/L (3.5-5.1); SODIUM LEVEL 136 MEQ/L (136-145); TOTAL PROTEIN 6.7 GM/DL (6.4-8.2)
[2020-06-20] MEDS ORDERED: KETOROLAC 30 MG/ML 1ML VIAL IV ONE (12:55)
[2020-06-20] MEDS ORDERED: ONDANSETRON 4MG/2ML VIAL IV ONE (13:10)
[2020-06-20] MEDS ORDERED: AMPICILLIN SOD/SULBACTAM SOD 3 GM in D5W MINI-BAG PLUS 100 ML IV ONE (13:40)
[2020-06-20] MEDS ORDERED: FLOM0.4C39 PO (14:07)
[2020-06-20] MEDS ORDERED: ONDA8TAB10 PO (14:07)
[2020-06-20] MEDS ORDERED: COLA100C5 PO (14:07)
[2020-06-20 15:00] LABS: RSV AMPLIFICATION NEGATIVE (NEGATIVE)
[2020-06-20] MEDS: NS 1,000 ML IV SCH (17:17)
[2020-06-20] MEDS: PHENAZOPYRIDINE 100 MG TAB PO SCH ×2 (17:18→21:22)
[2020-06-20] MEDS ORDERED: NICOTINE POLACRILEX 2 MG GUM PO PRN (17:55)
[2020-06-20 18:29] VITALS: BP 93/64
[2020-06-20] MEDS: SUCRALFATE SUSP 1GM/10ML UD PO SCH ×2 (19:16→21:10)
[2020-06-20] MEDS: KETOROLAC 30 MG/ML 1ML VIAL IV PRN (19:17)
--- NOTE | 2020-06-20 19:37 | HPEPDOC ---
General Date of Admission Jun 20, 2020 at 14:46 Date of Service: Jun 20, 2020 Chief Complaint The patient is a 40-year-old female admitted with a reason for visit of intractable nausea and vomiting and pyelonephritis Source: Patient History of Present Illness Mrs. Gonzales is a 40-year-old female with nephrocalcinosis, nephrolithiasis, and recurrent ESBL UTI who presents with intractable nausea and vomiting, low back pain, dysuria, and fevers. Last Saturday she had a lithotripsy with Dr. Alicia. Afterwards she was told to stay well-hydrated. She did not do well afterwards. She tells me in general, she does not tolerate anesthesia very well. After she is very nauseous and cannot keep food down. She tried drinking water and staying hydrated and vomiting. The last time she had anything solid was prior to the procedure. In addition she had flank pain and dysuria every time she urinated. She tells me that the pain is so severe that she was afraid to urinate each time. While in the ED, she had a temperature of 101 and HR 105. Work up was significant for a leukocytosis of 13.1. UA demonstrated by pyuria. Of note, she has a history of recurrent ESBL UTI. She was positive for ESBL E. coli on 03/04/2020 and 01/25/2020. Her last positive urine culture grew Staphylococcus epidermidis on 04/25/2020. On physical exam, she was positive for CVA tenderness. CT abd/pelvis demonstrates bilateral uretal stents with resolution of staghorn calculus and large calculi. Also demonstrated chronic medullary sponge kidney/nephrocalcinosis. Patient will be admitted for sepsis secondary to pyelonephritis. Home Medications Scheduled Tamsulosin HCl (Flomax) 0.4 Mg Capsule, 0.4 MG PO DAILY, (Reported) Scheduled PRN Docusate Sodium (Colace) 100 Mg Capsule, 100 MG PO BID PRN for CONSTIPATION, (Reported) Ondansetron HCl (Ondansetron HCl) 8 Mg Tablet, 8 MG PO DAILY PRN for NAUSEA OR VOMITING, (Reported) Allergies Coded Allergies: No Known Allergies (Unverified , 06/10/20) Past Medical History Medical History 1. Nicotine dependence 2. Right brachial cleft cyst 3. Nephrolithiasis 4. Nephrocalcinosis 5. GERD Surgical History 1. Bilateral lithotripsy 2. Nephrotic tube on the right 3. Stent on right Family History Father: COPD, emphysema, AAA, arthritis, ulcerative colitis Mother: Osteoporosis, Crohn's disease Social History * Smoker: current smoker (has a pack per day for 13 years) Alcohol: Denies Drugs: denies A-FIB/CHADSVASC A-FIB History Current/History of A-Fib/PAF?: No Review of Systems Constitutional: Reports: Fever ENT: Reports: Other Symptoms (Dry mouth) Skin: Denies: Rash Pulmonary: Reports: Dyspnea (when she feels septic, she gets dyspneic ), Cough (Smoker's cough with clear phlegm) Cardiovascular: Denies: Chest Pain Gastrointestinal: Reports: Nausea; Denies: Abdominal Pain Genitourinary: Reports: Dysuria Hematologic: Denies: Bruising Musculoskeletal: Reports: Back Pain Neurological: Denies: Weakness, Numbness Psych: Reports: Depression Physical Examination General Exam: Positive: Alert, Cooperative Eye Exam: Positive: EOMI; Negative: Sclera icteric ENT Exam: Positive: Atraumatic Neck Exam: Positive: Supple Chest Exam: Positive: Clear to auscultation; Negative: Rales, Rhonchi, Wheezing Heart Exam: Positive: Tachycardic, Regular Rhythm Abdomen Exam: Positive: Normal bowel sounds, Soft; Negative: Tenderness Extremity Exam: Negative: Edema Neuro Exam: Positive: Normal Gait, Normal Speech Psych Exam: Positive: Mental status NL, Anxiety Other physical findings CVA tenderness bilaterally Vital Signs Vital Signs Date Time Temp Pulse Resp B/P (MAP) Pulse Ox O2 Delivery O2 Flow Rate FiO2 06/20/20 14:45 86 114/57 (76) 97 Room Air 06/20/20 13:10 101.0 06/20/20 10:40 17 Laboratory Data Labs 24H Laboratory Tests 2 06/20/20 12:01: Nucleated Red Blood Cells % (auto) 0.0, Anion Gap 6L, Glomerular Filtration Rate > 60.0, Calcium Level 8.9, Total Bilirubin 0.5, Aspartate Amino Transf (AST/SGOT) 10, Alanine Aminotransferase (ALT/SGPT) 15, Alkaline Phosphatase 102, Total Protein 6.7, Albumin 3.2, Albumin/Globulin Ratio 0.9L 06/20/20 12:11: Urine Color YELLOW, Urine Appearance CLOUDYH, Urine pH 7.0, Urine Specific [place] 1.015, Urine Protein 2+H, Urine Glucose (UA) NEGATIVE, Urine Ketones TRACEH, Urine Blood 3+H, Urine Nitrite NEGATIVE, Urine Bilirubin NEGATIVE, Urine Urobilinogen 0.2, Urine Leukocyte Esterase 3+H, Urine WBC (Auto) 137H, Urine RBC (Auto) TNTCH, Urine Hyaline Casts (Auto) 0, Urine Bacteria (Auto) NEGATIVE, Urine Squamous Epithelial Cells 0, Urine Sperm (Auto) 06/20/20 12:22: POC Glucose (Misc Panel) 94, POC Sodium (Misc Panel) 135L, POC Potassium (Misc Panel) 4.1, POC Chloride (Misc Panel) 99, POC Total CO2 (Misc Panel) 29.0H, POC Blood Urea Nitrogen (Misc Panel 11, POC Ionized Calcium (Misc Panel) 4.6, POC Creatinine (Misc Panel) 0.7, POC Hematocrit (Misc Panel) 42.0 06/20/20 14:08: Lactic Acid Level 0.7, Coronavirus (COVID-19)(PCR) NEGATIVE, Influenza Type A (RT-PCR) NEGATIVE, Influenza Type B (RT-PCR) NEGATIVE, Respiratory Syncytial V irus (PCR) NEGATIVE CBC/BMP Laboratory Tests 06/20/20 12:01 Microbiology Microbiology 06/20/20 Blood Culture, Received Pending 06/20/20 Blood Culture, Received Pending 06/20/20 Urine Culture, Received Pending Assessment/Plan Mrs. Gonzales is a 40-year-old female with nephrocalcinosis, nephrolithiasis, and recurrent ESBL UTI who presents with intractable nausea and vomiting, low back pain, dysuria, and fevers. She is here for sepsis secondary to pyelonephritis. She has flank pain and CVA tenderness. She also has a history of recurrent ESBL E.coli. The ESBL E.coli is sensitive to both Unasyn and Zosyn. While waiting for urine culture results, will treat with Zosyn. Will give IVF to help flush the residual nonobstructing renal stones from the lithotripsy. Since we know she has a UTI, will treat dysuria with Pyridium. Plan / VTE VTE Prophylaxis Ordered?: Yes Plan Plan 1. Sepsis 2/2 pyelonephritis -Flank pain and fever with UA suspicious for UTI -Lactic acid 0.7 -Did receive 30mL/kg of fluid in the ED -Continued IVF and started on IV antibiotics 2. Residual non-obstructing nephrolithiasis from lithotripsy -Will continue IVF to flush kidney stones -Still has persistent dysuria -Will give Pyridium for symptomatic relief -Continue tamsulosin 3. Pyelonephritis -Received ketorolac in the ED which relieved flank pain -Acetaminophen first, then ketorolac if pain not controlled -IV zosyn 4. History of ESBL UTI -Resistant to ampicillin, cephalosporins, and gentamicin -Intermediate to Levofloxacin -Sensitive to Zosyn, Bactrim, and Unasyn 5. Nausea/Vomiting -Start on clear liquid diet -Start Protonix and Carafate -Start zofran as need for nausea -IVF 6. DVT ppx -SCD and TEDs. Cautious about chemical ppx due to hematuria (3+ blood and TNTC RBC) AVERY GRANDE DO Jun 20, 2020 16:19
[2020-06-20] MEDS: ACETAMINOPHEN TAB 650MG DOSE (2X325MG) PO PRN (21:11)
[2020-06-20] MEDS: PIPERACILLIN/TAZOBACTAM SOD 3.375 GM in D5W MINI-BAG PLUS 50 ML IV SCH (21:11)
[2020-06-20 22:00] VITALS: BP 102/68
[2020-06-21] MEDS: ACETAMINOPHEN TAB 650MG DOSE (2X325MG) PO PRN ×2 (01:18→15:41)
[2020-06-21] MEDS: KETOROLAC 30 MG/ML 1ML VIAL IV PRN ×3 (01:18→14:11)
[2020-06-21] MEDS: ONDANSETRON 4MG/2ML VIAL IV PRN ×2 (01:18→07:53)
[2020-06-21 02:00] VITALS: BP 101/65
[2020-06-21] MEDS: PIPERACILLIN/TAZOBACTAM SOD 3.375 GM in D5W MINI-BAG PLUS 50 ML IV SCH ×4 (02:50→20:25)
[2020-06-21] MEDS: NS 1,000 ML IV SCH (04:36)
[2020-06-21 06:00] VITALS: BP 104/65
[2020-06-21 06:03] LABS: HEMATOCRIT 31.3 % (36.0-47.0); MEAN CORPUSCULAR HEMOGLOBIN 30.9 pg (27.0-33.0); MEAN CORPUSCULAR HGB CONC 32.9 g/dl (32.0-36.5); PLATELET COUNT, AUTOMATED 282 10^3/uL (150-450); RED BLOOD COUNT 3.33 10^6/uL (4.00-5.40); WHITE BLOOD COUNT 10.9 10^3/uL (4.0-10.0)
[2020-06-21 06:12] LABS: HEMOGLOBIN 10.3 g/dl (12.0-15.5)
[2020-06-21 06:23] LABS: BLOOD UREA NITROGEN 10 MG/DL (7-18); CALCIUM LEVEL 7.9 MG/DL (8.5-10.1); CARBON DIOXIDE LEVEL 24 MEQ/L (21-32); CHLORIDE LEVEL 109 MEQ/L (98-107); GLOMERULAR FILTRATION RATE > 60.0 (>58); GLUCOSE, FASTING 96 MG/DL (70-100); MAGNESIUM LEVEL 1.9 MG/DL (1.8-2.4); POTASSIUM SERUM 3.8 MEQ/L (3.5-5.1); SODIUM LEVEL 138 MEQ/L (136-145)
[2020-06-21] MEDS: LACTOBACILLUS ACIDOPHILUS CAP (BACID) PO SCH (07:45)
[2020-06-21] MEDS: SUCRALFATE SUSP 1GM/10ML UD PO SCH ×2 (07:45→12:00)
[2020-06-21] MEDS: PANTOPRAZOLE 40MG TAB (PROTONIX) PO SCH (07:45)
[2020-06-21] MEDS: PHENAZOPYRIDINE 100 MG TAB PO SCH ×3 (07:45→20:25)
[2020-06-21] MEDS: TAMSULOSIN 0.4 MG CAP PO SCH (07:45)
[2020-06-21 14:00] VITALS: BP 102/64
[2020-06-21] MEDS ORDERED: MIRALAX *UNIT DOSE* 17GM PACKET PO PRN (16:15)
--- NOTE | 2020-06-21 17:46 | IPNPDOC ---
Date Seen The patient was seen on 06/21/20. Progress Note SUBJECTIVE: Patient seen and examined at bedside this morning. Continues to have fevers overnight. Reports left-sided upper back pain. She does report nausea but has not had any vomiting. She makes good urine and is able to void spontaneously. To attempt to do as diet as tolerated. Currently tolerating clear liquids diet successfully. OBJECTIVE PHYSICAL EXAMINATION: VITAL SIGNS: Please see below. General: NAD, comfortable HEENT: PERRLA, EOMI, sclerae clear Neck: supple, normal ROM, no JVD Respiratory: lungs CTAB, no wheeze, no rales, no crackles CVS: RRR, normal S1, S2, no murmurs Abdo: soft, no masses, no hepatosplenomegaly, BS+, no rebound tenderness Extremities: no edema, pulses 2+ MSK: no joint deformities, normal ROM Neuro: no focal neuro deficits, moving all 4 extremities, CN2-12 intact. Strength 5/5 in all 4 extremities. No nystagmus. Psych: calm, cooperative, AAO x 3 LABORATORY DATA, IMAGING STUDIES, MICROBIOLOGY: Please see below. Echocardiogram: . DVT prophylaxis ordered?: ASSESSMENT AND PLAN: Mrs. Gonzales is a 40-year-old female with nephrocalcinosis, nephrolithiasis, and recurrent ESBL UTI who presents with intractable nausea and vomiting, low back pain, dysuria, and fevers. She is here for sepsis secondary to pyelonephritis. She has flank pain and CVA tenderness. She also has a history of recurrent ESBL E.coli. The ESBL E.coli is sensitive to both Unasyn and Zosyn. While waiting for urine culture results, will treat with Zosyn. Will give IVF to help flush the residual nonobstructing renal stones from the lithotripsy. Since we know she has a UTI, will treat dysuria with Pyridium. PROBLEMS: 1. Sepsis 2/2 pyelonephritis -Flank pain and fever with UA suspicious for UTI -Lactic acid 0.7 -Did receive 30mL/kg of fluid in the ED -Continued IVF and started on IV antibiotics 2. Residual non-obstructing nephrolithiasis from lithotripsy -Still has persistent dysuria -Will give Pyridium for symptomatic relief -Continue tamsulosin 3. Pyelonephritis -Received ketorolac in the ED which relieved flank pain -Acetaminophen first, then ketorolac if pain not controlled -IV zosyn 4. History of ESBL UTI -Resistant to ampicillin, cephalosporins, and gentamicin -Intermediate to Levofloxacin -Sensitive to Zosyn, Bactrim, and Unasyn 5. Nausea/Vomiting -tolerated CLD. Advance diet AT - c/w zofran - c/w ppi -DC IVF as tolerating PO well 6. DVT ppx -SCD and TEDs. Cautious about chemo ppx due to hematuria (3+ blood and TNTC RBC) VS, I&O, 24H, Fishbone Vital Signs/I&O Vital Signs Date Time Temp Pulse Resp B/P (MAP) Pulse Ox O2 Delivery O2 Flow Rate FiO2 06/21/20 15:43 98.2 06/21/20 14:00 88 17 102/64 (77) 98 Room Air I&O- Last 24 Hours up to 6 AM 06/21/20 06:00 Intake Total 3850 ml Output Total 750 ml Balance 3100 ml Laboratory Data 24H LABS Laboratory Tests 2 06/21/20 05:50: Nucleated Red Blood Cells % (auto) 0.0, Anion Gap 5L, Glomerular Filtration Rate > 60.0, Calcium Level 7.9L, Magnesium Level 1.9 CBC/BMP Laboratory Tests 06/21/20 05:50 Microbiology Microbiology 06/20/20 Blood Culture - Preliminary, Resulted No growth after 24 hours . All specim... 06/20/20 Blood Culture - Preliminary, Resulted No growth after 24 hours . All specim... 06/20/20 Urine Culture - Final, Complete ELLEN MEHTA MD Jun 21, 2020 17:46
[2020-06-21 22:00] VITALS: BP 96/64
[2020-06-22] MEDS: PIPERACILLIN/TAZOBACTAM SOD 3.375 GM in D5W MINI-BAG PLUS 50 ML IV SCH (02:07)
[2020-06-22] MEDS: ACETAMINOPHEN TAB 650MG DOSE (2X325MG) PO PRN (04:16)
[2020-06-22 06:00] VITALS: BP 102/64
[2020-06-22 06:32] LABS: HEMATOCRIT 32.7 % (36.0-47.0); HEMOGLOBIN 10.6 g/dl (12.0-15.5); MEAN CORPUSCULAR HEMOGLOBIN 30.8 pg (27.0-33.0); MEAN CORPUSCULAR HGB CONC 32.4 g/dl (32.0-36.5); MEAN CORPUSCULAR VOLUME 95.1 fl (80.0-96.0); PLATELET COUNT, AUTOMATED 317 10^3/uL (150-450); RED BLOOD COUNT 3.44 10^6/uL (4.00-5.40); WHITE BLOOD COUNT 7.4 10^3/uL (4.0-10.0)
[2020-06-22 06:49] LABS: BLOOD UREA NITROGEN 12 MG/DL (7-18); CALCIUM LEVEL 8.1 MG/DL (8.5-10.1); CARBON DIOXIDE LEVEL 29 MEQ/L (21-32); CHLORIDE LEVEL 111 MEQ/L (98-107); CREATININE FOR GFR 0.68 MG/DL (0.55-1.30); GLOMERULAR FILTRATION RATE > 60.0 (>58); GLUCOSE, FASTING 97 MG/DL (70-100); POTASSIUM SERUM 4.5 MEQ/L (3.5-5.1); SODIUM LEVEL 142 MEQ/L (136-145)
[2020-06-22] MEDS: TAMSULOSIN 0.4 MG CAP PO SCH (09:00)
[2020-06-22] MEDS: LACTOBACILLUS ACIDOPHILUS CAP (BACID) PO SCH (09:00)
[2020-06-22] MEDS: PHENAZOPYRIDINE 100 MG TAB PO SCH (09:00)
[2020-06-22] MEDS: PANTOPRAZOLE 40MG TAB (PROTONIX) PO SCH (09:00)
[2020-06-22] MEDS: MEROPENEM INJ 1 GM in IV 1 EA IV SCH ×2 (10:23→17:28)
[2020-06-22] MEDS: ENOXAPARIN 40MG/0.4ML SYRINGE (J1650 PER 10MG) SC SCH (12:30)
--- NOTE | 2020-06-22 12:30 | IPNPDOC ---
Date Seen The patient was seen on 06/22/20. Progress Note SUBJECTIVE: Patient was seen and examined at bedside. Doing well. He is to have fevers overnight. Last low-grade temp was 100.0. Patient states that her low back pain has improved as well as did her dysuria. Her appetite is improved. She is tolerating regular diet. OBJECTIVE PHYSICAL EXAMINATION: VITAL SIGNS: Please see below. General: NAD, comfortable HEENT: PERRLA, EOMI, sclerae clear Neck: supple, normal ROM, no JVD Respiratory: lungs CTAB, no wheeze, no rales, no crackles CVS: RRR, normal S1, S2, no murmurs Abdo: soft, no masses, no hepatosplenomegaly, BS+, no rebound tenderness Extremities: no edema, pulses 2+ MSK: no joint deformities, normal ROM Neuro: no focal neuro deficits, moving all 4 extremities, CN2-12 intact. Strength 5/5 in all 4 extremities. No nystagmus. Psych: calm, cooperative, AAO x 3 LABORATORY DATA, IMAGING STUDIES, MICROBIOLOGY: Please see below. DVT prophylaxis ordered?: SCDs. TEDs. Lovenox resumed on 06/22/20 ASSESSMENT AND PLAN: Mrs. Gonzales is a 40-year-old female with nephrocalcinosis, nephrolithiasis, and recurrent ESBL UTI who presents with intractable nausea and vomiting, low back pain, dysuria, and fevers. She is here for sepsis secondary to pyelonephritis. She has flank pain and CVA tenderness. She also has a history of recurrent ESBL E.coli. PROBLEMS: 1. Sepsis 2/2 pyelonephritis - sepsis resolved - suspect source is UTI 2/2 bilateral 2. Residual non-obstructing nephrolithiasis from lithotripsy - Dysuria and back back have resolved. - Pyridium for symptomatic relief - c/w tamsulosin 3. Pyelonephritis -pain is improving - continues to have fevers - was on abx pre-peratively for 30 days, took bactrim and macrobid for 3 days prior to admission as was concerned for UTI - UA+ for infection, UCx negative - s/p zosyn (3 days) - ID consult placed for concern over persistent ESBL infection. D/w Dr. Albert - switched zosyn to meropenem. - plan for PO abx on DC 4. History of ESBL UTI -Resistant to ampicillin, cephalosporins, and gentamicin -Intermediate to Levofloxacin -Sensitive to Zosyn, Bactrim, and Unasyn - presently on Meropenem. Patient improved on zosyn ie back pain and dysuria, continues to have fevrs. 5. Nausea/Vomiting -tolerated CLD. Advance diet AT - c/w zofran - c/w ppi -DC IVF as tolerating PO well 6. DVT ppx -SCD and TEDs. Cautious about chemo ppx due to hematuria (3+ blood and TNTC RBC) VS, I&O, 24H, Fishbone Vital Signs/I&O Vital Signs Date Time Temp Pulse Resp B/P (MAP) Pulse Ox O2 Delivery O2 Flow Rate FiO2 06/22/20 06:00 97.7 63 16 102/64 (77) 95 Room Air I&O- Last 24 Hours up to 6 AM 06/22/20 06:00 Intake Total 2420 ml Output Total 2375 ml Balance 45 ml Laboratory Data 24H LABS Laboratory Tests 2 06/22/20 06:13: Nucleated Red Blood Cells % (auto) 0.0, Anion Gap 2L, Glomerular Filtration Rate > 60.0, Calcium Level 8.1L, Magnesium Level 2.0 CBC/BMP Laboratory Tests 06/22/20 06:13 Microbiology Microbiology 06/20/20 Blood Culture - Preliminary, Resulted No growth after 24 hours . All specim... 06/20/20 Blood Culture - Preliminary, Resulted No growth after 24 hours . All specim... 06/20/20 Urine Culture - Final, Complete ELLEN MEHTA MD Jun 22, 2020 12:30
[2020-06-22 14:00] VITALS: BP 82/52
[2020-06-22 22:00] VITALS: BP 109/66
[2020-06-22] MEDS: KETOROLAC 30 MG/ML 1ML VIAL IV PRN (23:06)
[2020-06-23] MEDS: MEROPENEM INJ 1 GM in IV 1 EA IV SCH ×2 (01:22→12:36)
[2020-06-23] MEDS: ACETAMINOPHEN TAB 650MG DOSE (2X325MG) PO PRN (01:23)
[2020-06-23 05:56] LABS: HEMATOCRIT 32.6 % (36.0-47.0); HEMOGLOBIN 10.4 g/dl (12.0-15.5); MEAN CORPUSCULAR HEMOGLOBIN 30.1 pg (27.0-33.0); MEAN CORPUSCULAR HGB CONC 31.9 g/dl (32.0-36.5); MEAN CORPUSCULAR VOLUME 94.2 fl (80.0-96.0); PLATELET COUNT, AUTOMATED 358 10^3/uL (150-450); RED BLOOD COUNT 3.46 10^6/uL (4.00-5.40); WHITE BLOOD COUNT 6.7 10^3/uL (4.0-10.0)
[2020-06-23 06:00] VITALS: BP 105/60
[2020-06-23 06:18] LABS: BLOOD UREA NITROGEN 11 MG/DL (7-18); CALCIUM LEVEL 8.5 MG/DL (8.5-10.1); CARBON DIOXIDE LEVEL 32 MEQ/L (21-32); CHLORIDE LEVEL 109 MEQ/L (98-107); CREATININE FOR GFR 0.64 MG/DL (0.55-1.30); GLOMERULAR FILTRATION RATE > 60.0 (>58); GLUCOSE, FASTING 95 MG/DL (70-100); MAGNESIUM LEVEL 2.1 MG/DL (1.8-2.4); SODIUM LEVEL 144 MEQ/L (136-145)
[2020-06-23] MEDS ORDERED: VANCOMYCIN HCL 1,000 MG, VIAL MATE ADAPTER 1 EACH in NS 250 ML IV SCH ×2 (07:20→17:00)
[2020-06-23] MEDS ORDERED: VANCOMYCIN HCL 750 MG, VIAL MATE ADAPTER 1 EACH in NS 250 ML IV ONE (09:00)
[2020-06-23] MEDS: LACTOBACILLUS ACIDOPHILUS CAP (BACID) PO SCH (09:50)
[2020-06-23] MEDS: TAMSULOSIN 0.4 MG CAP PO SCH (09:50)
[2020-06-23] MEDS: PANTOPRAZOLE 40MG TAB (PROTONIX) PO SCH (09:50)
[2020-06-23] MEDS: ENOXAPARIN 40MG/0.4ML SYRINGE (J1650 PER 10MG) SC SCH (09:51)
[2020-06-23] MEDS ORDERED: VANCOMYCIN HCL 500 MG in D5W MINI-BAG PLUS 100 ML IV ONE (10:00)
--- NOTE | 2020-06-23 10:54 | IPNPDOC ---
Date Seen The patient was seen on 06/23/20. Progress Note SUBJECTIVE: Patient was seen and examined at bedside. Doing well. Afebrile overnight. Patient states that her low back pain has improved as well as did her dysuria. Her appetite is improved. She is tolerating regular diet. OBJECTIVE PHYSICAL EXAMINATION: VITAL SIGNS: Please see below. General: NAD, comfortable HEENT: PERRLA, EOMI, sclerae clear Neck: supple, normal ROM, no JVD Respiratory: lungs CTAB, no wheeze, no rales, no crackles CVS: RRR, normal S1, S2, no murmurs Abdo: soft, no masses, no hepatosplenomegaly, BS+, no rebound tenderness Extremities: no edema, pulses 2+ MSK: no joint deformities, normal ROM Neuro: no focal neuro deficits, moving all 4 extremities, CN2-12 intact. Stre ngth 5/5 in all 4 extremities. No nystagmus. Psych: calm, cooperative, AAO x 3 LABORATORY DATA, IMAGING STUDIES, MICROBIOLOGY: Please see below. DVT prophylaxis ordered?: SCDs. TEDs. Lovenox resumed on 06/22/20 ASSESSMENT AND PLAN: Mrs. Gonzales is a 40-year-old female with nephrocalcinosis, nephrolithiasis, and recurrent ESBL UTI who presents with intractable nausea and vomiting, low back pain, dysuria, and fevers. She is here for sepsis secondary to pyelonephritis. She has flank pain and CVA tenderness. She also has a history of recurrent ESBL E.coli. PROBLEMS: 1. Sepsis 2/2 pyelonephritis - sepsis resolved - suspect source is UTI 2/2 bilateral 2. Residual non-obstructing nephrolithiasis from lithotripsy - Dysuria and back back have resolved. - Pyridium for symptomatic relief - c/w tamsulosin 3. Pyelonephritis -pain is improving - continues to have fevers - was on abx pre-peratively for 30 days, took bactrim and macrobid for 3 days prior to admission as was concerned for UTI - UA+ for infection, UCx negative - s/p zosyn (3 days) - ID consult placed for concern over persistent ESBL infection. D/w Dr. Albert - switched zosyn to meropenem. - added vancomycin on 06/23/20 - plan for PO abx on DC 4. History of ESBL UTI - Resistant to ampicillin, cephalosporins, and gentamicin - Intermediate to Levofloxacin - Sensitive to Zosyn, Bactrim, and Unasyn - s/p zosyn 3 days - presently on Meropenem (day 2). Patient improved on zosyn ie back pain and dysuria, continues to have fevers - ID Consult placed, d/w Dr. Albert - added vancomycin 5. Nausea/Vomiting - tolerated CLD. Advance diet AT - c/w zofran - c/w ppi - DC IVF as tolerating PO well 6. DVT ppx -SCD and TEDs. Lovenox VS, I&O, 24H, Fishbone Vital Signs/I&O Vital Signs Date Time Temp Pulse Resp B/P (MAP) Pulse Ox O2 Delivery O2 Flow Rate FiO2 06/23/20 06:00 97.0 56 16 105/60 (75) 99 Room Air I&O- Last 24 Hours up to 6 AM 06/23/20 06:00 Intake Total 2070 ml Output Total 1575 ml Balance 495 ml Laboratory Data 24H LABS Laboratory Tests 2 06/23/20 05:43: Nucleated Red Blood Cells % (auto) 0.0, Anion Gap 3L, Glomerular Filtration Rate > 60.0, Calcium Level 8.5, Magnesium Level 2.1 CBC/BMP Laboratory Tests 06/23/20 05:43 Microbiology Microbiology 06/20/20 Blood Culture - Preliminary, Resulted No Growth after 48 hours. All Specime... 06/20/20 Blood Culture - Preliminary, Resulted No Growth after 48 hours. All Specime... 06/20/20 Urine Culture - Final, Complete ELLEN MEHTA MD Jun 23, 2020 10:54
[2020-06-23 14:00] VITALS: BP 102/56
[2020-06-23 15:44] LABS: C REACTIVE PROTEIN QUANTITATIV 9.65 MG/DL (0.00-0.30)
[2020-06-23] MEDS ORDERED: LIDOCAINE 1% MDV 20ML VIAL As Ordered ONE (16:35)
[2020-06-23] MEDS ORDERED: SODIUM BICARBONATE 8.4% INJ 50MEQ 50 ML VIAL As Ordered ONE (17:05)
[2020-06-23] MEDS: ERTAPENEM SODIUM 1 GM in NS MINI-BAG PLUS 50 ML IV SCH (17:51)
[2020-06-23] MEDS ORDERED: SODIUM CHLORIDE 0.9% INJ 10 ML SYR IV PRN (18:00)
[2020-06-23] MEDS: SODIUM CHLORIDE 0.9% INJ 10 ML SYR IV SCH (19:56)
[2020-06-23] MEDS: LINEZOLID 600MG TABLET (ZYVOX) PO SCH (20:01)
[2020-06-23 22:00] VITALS: BP 105/62
[2020-06-24 06:00] VITALS: BP 107/59
[2020-06-24] MEDS: SODIUM CHLORIDE 0.9% INJ 10 ML SYR IV SCH (06:31)
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
[2020-06-24] MEDS ORDERED: RISATAB3 PO (09:05)
[2020-06-24] MEDS ORDERED: COLA100C5 PO (09:05)
[2020-06-24] MEDS ORDERED: ACET1TAB55 PO (09:05)
[2020-06-24] MEDS ORDERED: ONDA-83 PO (09:05)
[2020-06-24] MEDS ORDERED: ERTA1INJ3 IJ (09:05)
[2020-06-24] MEDS ORDERED: PANT40TA29 PO (09:05)
[2020-06-24] MEDS ORDERED: LINE1TAB6 PO (09:05)
[2020-06-24] MEDS ORDERED: FLOM0.4C39 PO (09:05)
[2020-06-24] MEDS: TAMSULOSIN 0.4 MG CAP PO SCH (09:10)
[2020-06-24] MEDS: PANTOPRAZOLE 40MG TAB (PROTONIX) PO SCH (09:10)
[2020-06-24] MEDS: ENOXAPARIN 40MG/0.4ML SYRINGE (J1650 PER 10MG) SC SCH (09:11)
[2020-06-24] MEDS: LACTOBACILLUS ACIDOPHILUS CAP (BACID) PO SCH (09:11)
[2020-06-24] MEDS: LINEZOLID 600MG TABLET (ZYVOX) PO SCH (09:11)
--- NOTE | 2020-06-24 11:20 | DS.PDOC ---
Discharge Summary General Date of Admission Jun 20, 2020 at 14:46 Date of Discharge 06/24/20 Discharge Summary PROCEDURES PERFORMED DURING STAY: [None]. ADMITTING DIAGNOSES: sepsis 2/2 pyelonephritis non obstructing nephrolithiasis pyelonephritis history of ESBL UTI Nausea and vomiting DISCHARGE DIAGNOSES: sepsis 2/2 pyelonephritis non obstructing nephrolithiasis pyelonephritis history of ESBL UTI Nausea and vomiting COMPLICATIONS/CHIEF COMPLAINT: Kidney Stone,Nausea & Vomiting,Pyelonephritis. HISTORY OF PRESENT ILLNESS: Mrs. Gonzales is a 40-year-old female with nephrocalcinosis, nephrolithiasis, and recurrent ESBL UTI who presents with intractable nausea and vomiting, low back pain, dysuria, and fevers. Last Saturday she had a lithotripsy with Dr. Alicia. Afterwards she was told to stay well- hydrated. She did not do well afterwards. She tells me in general, she does not tolerate anesthesia very well. After she is very nauseous and cannot keep food down. She tried drinking water and staying hydrated and vomiting. The last time she had anything solid was prior to the procedure. In addition she had flank pain and dysuria every time she urinated. She tells me that the pain is so severe that she was afraid to urinate each time. While in the ED, she had a temperature of 101 and HR 105. Work up was significant for a leukocytosis of 13.1. UA demonstrated by pyuria. Of note, she has a history of recurrent ESBL UTI. She was positive for ESBL E. coli on 03/04/2020 and 01/25/2020. Her last positive urine culture grew Staphylococcus epidermidis on 04/25/2020. On physical exam, she was positive for CVA tenderness. CT abd/pelvis demonstrates bilateral uretal stents with resolution of staghorn calculus and large calculi. Also demonstrated chronic medullary sponge kidney/nephrocalcinosis. Patient will be admitted for sepsis secondary to pyelonephritis. HOSPITAL COURSE: 1. Sepsis 2/2 pyelonephritis - sepsis resolved - suspect source is UTI 2/2 staghorn calculis, s/p laser lithotripsy and stenting of both kidneys - afebrile, without leukocytosis on DC - plan for abx as below. 2. Residual non-obstructing nephrolithiasis from lithotripsy - Dysuria and back back have resolved. - Pyridium for symptomatic relief - c/w tamsulosin 3. Pyelonephritis -pain is improving - continues to have fevers - was on abx pre-peratively for 30 days, took bactrim and macrobid for 3 days prior to admission as was concerned for UTI - UA+ for infection, UCx negative - s/p zosyn (3 days) - ID consult placed for concern over persistent ESBL infection. D/w Dr. Albert - switched zosyn to ertapenem - added vancomycin on 06/23/20 - plan to go home with 10 days of ertepenem IV via midline (inserted on 06/23/20) and 10 days of linezolid. - stens will be removed along with a cystoscopy by Dr. Alicia on , and will remain on IV abx for 3 additional days thereafter. 4. History of ESBL UTI - Resistant to ampicillin, cephalosporins, and gentamicin - Intermediate to Levofloxacin - Sensitive to Zosyn, Bactrim, and Unasyn - s/p zosyn 3 days - presently on Meropenem (day 2). Patient improved on zosyn ie back pain and dysuria, continues to have fevers - ID Consult placed, d/w Dr. Albert - DC home of ertepenem and linezolid x 10 days. 5. Nausea/Vomiting - tolerated CLD. Advance diet AT - c/w zofran - c/w ppi - DC IVF as tolerating PO well 6. DVT ppx -SCD and TEDs. Lovenox DISCHARGE MEDICATIONS: Please see below. ALLERGIES: Please see below. PHYSICAL EXAMINATION ON DISCHARGE: VITAL SIGNS: please see below General: NAD, comfortable HEENT: PERRLA, EOMI, sclerae clear Neck: supple, normal ROM, no JVD Respiratory: lungs CTAB, no wheeze, no rales, no crackles CVS: RRR, normal S1, S2, no murmurs Abdo: soft, no masses, no hepatosplenomegaly, BS+, no rebound tenderness Extremities: no edema, pulses 2+ MSK: no joint deformities, normal ROM Neuro: no focal neuro deficits, moving all 4 extremities, CN2-12 intact. Strength 5/5 in all 4 extremities. No nystagmus. Psych: calm, cooperative, AAO x 3 LABORATORY DATA: Please see below. IMAGING: CT abdo and pelvis w/o contrast (06/20/20): 1. Bilateral ureteral stents in satisfactory position. Previously noted large calculi and staghorn calculus have resolved with minimal residual nonobstructing intrarenal calculi and evidence for chronic medullary sponge kidney/nephrocalcinosis. PROGNOSIS: good ACTIVITY: As tolerated DIET: as tolerated DISCHARGE PLAN:DC home with IV ertepenena and PO linezolid x 10 days. Plan for urology to remove stents/cystocopy on 06/29/20. DISPOSITION: home with services. DISCHARGE INSTRUCTIONS: . Please follow-up with your primary care doctor within 3-5 days . Please follow-up with urology within 1 week . Please follow up with nephrology within 1 week . Please follow up with ID in 2 weeks. . Please taking medications as prescribed. To complete 10 days of ertapenem IV and linezolid. Home health referral has been placed for midline management. . If you develop bleeding, chest pain, shortness of breath, seizures, nausea, fevers, or otherwise worsening of your symptoms, please call 911 or return to the nearest emergency room DISCHARGE CONDITION: [Stable]. TIME SPENT ON DISCHARGE: 35 minutes Vital Signs/I&Os Vital Signs Date Time Temp Pulse Resp B/P (MAP) Pulse Ox O2 Delivery O2 Flow Rate FiO2 06/24/20 06:00 97.0 74 18 107/59 (75) 97 06/23/20 17:15 Room Air I&O- Last 24 Hours up to 6 AM 06/24/20 05:59 Intake Total 2400 ml Output Total 1725 ml Balance 675 ml Microbiology Microbiology 06/20/20 Blood Culture - Preliminary, Resulted No Growth after 72 hours. All specime... 06/20/20 Blood Culture - Preliminary, Resulted No Growth after 72 hours. All specime... 06/20/20 Urine Culture - Final, Complete Discharge Medications Scheduled Ertapenem Sodium (Ertapenem) 1 Gm Vial, 1 GM IJ DAILY L.acidoph/L.bulg/B.bif/S.therm (Greta-Bid Caplet) 1 Each Tablet, 1 EA PO DAILY Linezolid (Linezolid) 600 Mg Tablet, 600 MG PO BID Pantoprazole Sodium (Pantoprazole Sodium) 40 Mg Tablet.dr, 40 MG PO DAILY Tamsulosin HCl (Flomax) 0.4 Mg Capsule, 0.4 MG PO DAILY Scheduled PRN Acetaminophen (Acetaminophen) 325 Mg Tablet, 650 MG PO Q4H PRN for PAIN OR FEVER Docusate Sodium (Colace) 100 Mg Capsule, 100 MG PO BID PRN for CONSTIPATION Ondansetron HCl (Ondansetron HCl) 4 Mg Tablet, 4 MG PO Q4HP PRN for nausea/vomiting Allergies Coded Allergies: No Known Allergies (Unverified , 06/10/20) ELLEN MEHTA MD Jun 24, 2020 11:20
--- NOTE | 2020-06-24 11:49 | IPN ---
PROGRESS NOTE DATE: 06/24/2020 SUBJECTIVE: Laura is excited she is going home today. She has no nausea, vomiting or diarrhea. She has minimal dysuria. Urine is much clearer. LABORATORY DATA: White count 6.7, hemoglobin 10.4, hematocrit 32.6, platelets 358,000, sodium 144, potassium is 4, chloride 109, bicarbonate 32, BUN 11, creatinine 0.64, glucose 95, calcium 8.1, CRP 9.65. Blood culture from 06/20, two sets are negative. Urine culture was no growth of clinical significance but when I called the lab it had Staph and Strep. IMPRESSION: 1. Right sided pyelonephritis with staghorn calculus, doing well with IV Invanz and p.o. linezolid. 2. History of ESBL E. coli. 3. History of nephrocalcinosis with staghorn calculus on the right side status post laser lithotripsy and stenting of both kidneys. PLAN: Stents will be removed on June 29 and the patient will be treated with current IV antibiotics for a total of 10 days. She was started on June 23 and will discontinue antibiotics on July 02 and midline will be removed. I wrote a script for her home IV antibiotics and given them to the charge nurse [facility]. CINDI
[2020-06-24] MEDS: ERTAPENEM SODIUM 1 GM in NS MINI-BAG PLUS 50 ML IV SCH (12:14)
[2020-06-24] MEDS: ACETAMINOPHEN TAB 650MG DOSE (2X325MG) PO PRN (14:15)
[2020-06-24] MEDS ORDERED: FLUCONAZOLE 50MG TABLET PO ONE (15:00)
--- NOTE | 2020-06-24 17:05 | REP ---
PROCEDURE NAME: MIDLINE INSERTION W/ SITERITE CLINICAL INFORMATION: pyelo. COMPARISON: None. PROCEDURE DESCRIPTION: The procedure was performed by BRIANNA Crouch, under the direct supervision of Dr. Acuña. The risks and benefits of the procedure were explained to the patient and an informed consent was obtained both verbally and written. Directly prior to the start of the procedure a formal time-out was completed in the procedure room. The left basilic vein was localized using ultrasound guidance. The skin was prepped and draped in sterile fashion. Two mL of buffered lidocaine was used as a local anesthetic. Using ultrasound guidance the left basilic vein was cannulated, and a 0.018 guidewire was inserted. The needle was removed and a 4.5 Romanian dilator and peel-away sheath was inserted over the guidewire. A 4.5 Romanian single lumen catheter was cut to a length of 12 cm. The dilator was removed and the catheter was inserted over the guidewire. The peel-away sheath was removed and the catheter was flushed with heparinized saline as per hospital protocol. The catheter was affixed to the skin and a sterile dressing was applied. The patient tolerated the procedure well and there were no immediate complications. CONCLUSION: Mid line insertion into the left basilic vein. <Electronically signed by Deb Pimentel > 06/23/20 [id number] <Electronically signed by Bill Acuña > 06/24/20 [id number]
== END 2020-06-24 14:20 | disposition home health service (06) | DRG 872 ==
LOC: M ED 10:28 → EEVIPCON 14:46 → M ED INP 14:46 → M MSPAV 18:29
PROVIDERS: ADMIT Internal Medicine; ATTEND Family Medicine
PROC: 05HC33Z Insertion of Infusion Device into Left Basilic Vein, Percutaneous Approach (ICD-10-PCS; principal; 2020-06-23 16:00)
DX: A41.9 Sepsis, unspecified organism (principal); N10 Acute pyelonephritis; N20.0 Calculus of kidney; R11.2 Nausea with vomiting, unspecified; Z20.822 Contact with and (suspected) exposure to COVID-19; K21.9 Gastro-esophageal reflux disease without esophagitis; F17.200 Nicotine dependence, unspecified, uncomplicated; Z96.0 Presence of urogenital implants

== ENCOUNTER → 2021-02-03 | Outpatient (REF) | payer OTHER ==
[~2021-02-03] MED LIST changes: +ACET1TAB55 PO; +COLA100C5 PO; +ERTA1INJ3 IJ; +LINE1TAB6 PO; +ONDA-83 PO; +ONDA8TAB10 PO; +PANT40TA29 PO; -PANTOPRAZOLE 40MG VIAL (C9113 PER 1) IV SCH; +RISATAB3 PO
[2021-02-03 18:04] LABS: AMORPHOUS SEDIMENT SMALL (NEGATIVE); APPEARANCE, URINE CLOUDY (CLEAR); BACTERIA, URINE AUTO 1+ (NEGATIVE); BILIRUBIN, URINE AUTO NEGATIVE (NEGATIVE); BLOOD, URINE BLOOD NEGATIVE (NEGATIVE); COLOR, URINE YELLOW (YELLOW); GLUCOSE, URINE (UA) AUTO NEGATIVE (NEGATIVE); KETONE, URINE AUTO NEGATIVE (NEGATIVE); LEUKOCYTE ESTERASE, URINE AUTO 2+ (NEGATIVE); MUCUS, URINE SMALL (NEGATIVE); NITRITE, URINE AUTO POSITIVE (NEGATIVE); PROTEIN, URINE AUTO NEGATIVE (NEGATIVE); RBC, URINE AUTO 9 /HPF (0-3); SPECIFIC GRAVITY URINE AUTO 1.018 (1.002-1.035); SQUAMOUS EPITHELIAL CELL UR AU 0 /HPF (0-6); UROBILINOGEN, URINE AUTO 0.2 mg/dL (0.0-2.0); WBC, URINE AUTO 73 /HPF (0-3)
== END ==
LOC: M SMT 17:04
PROVIDERS: ATTEND Urology
DX: N39.0 Urinary tract infection, site not specified (principal)

== ENCOUNTER → 2021-02-21 | Outpatient (REF) | payer OTHER | LOC: M LAB REF 17:09 | PROVIDERS: ATTEND Nurse Practitioner Family | DX: Q61.5 Medullary cystic kidney (principal) ==

== ENCOUNTER → 2021-06-22 | Outpatient (CLI) | payer BC ==
[~2021-06-22] MED LIST changes: +ONDA-84 PO; -ONDA8TAB10 PO
== END ==
LOC: M RAD 17:18
PROVIDERS: ATTEND Urology
DX: N20.0 Calculus of kidney (principal); N39.0 Urinary tract infection, site not specified

== ENCOUNTER → 2021-07-18 | Outpatient (CLI) | payer BC | LOC: M PLAIMG 14:09 | PROVIDERS: ATTEND Urology | DX: N20.0 Calculus of kidney (principal) ==

== ENCOUNTER → 2021-11-02 | Outpatient (CLI) | payer BC ==
[2021-11-02 13:00] LABS: APPEARANCE, URINE HAZY (CLEAR); BACTERIA, URINE AUTO 3+ (NEGATIVE); BILIRUBIN, URINE AUTO NEGATIVE (NEGATIVE); BLOOD, URINE BLOOD NEGATIVE (NEGATIVE); COLOR, URINE YELLOW (YELLOW); GLUCOSE, URINE (UA) AUTO NEGATIVE (NEGATIVE); KETONE, URINE AUTO NEGATIVE (NEGATIVE); LEUKOCYTE ESTERASE, URINE AUTO 2+ (NEGATIVE); MUCUS, URINE SMALL (NEGATIVE); NITRITE, URINE AUTO POSITIVE (NEGATIVE); PROTEIN, URINE AUTO NEGATIVE (NEGATIVE); RBC, URINE AUTO 5 /HPF (0-3); SPECIFIC GRAVITY URINE AUTO 1.016 (1.002-1.035); SQUAMOUS EPITHELIAL CELL UR AU 0 /HPF (0-6); UROBILINOGEN, URINE AUTO 0.2 mg/dL (0.0-2.0); WBC, URINE AUTO 60 /HPF (0-3)
== END ==
LOC: M LAB 12:15
PROVIDERS: ATTEND Urology
DX: R30.0 Dysuria (principal)

== ENCOUNTER 2021-11-10 14:56 | Emergency (ER) | payer BC ==
[~2021-11-10] VITALS: Ht 160 cm; Wt 64.8 kg
[2021-11-10] MEDS ORDERED: KETOROLAC 30 MG/ML 1ML VIAL IV ONE (15:45)
[2021-11-10] MEDS ORDERED: ONDANSETRON 4MG 2ML VIAL IV ONE (15:45)
[2021-11-10 16:01] LABS: BASO # 0.1 10^3/uL (0.0-0.2); BASO % 0.3 % (0.0-1.0); EOS # 0.2 10^3/uL (0.0-0.5); EOS % 1.3 % (0.0-3.0); HEMATOCRIT 38.7 % (36.0-47.0); HEMOGLOBIN 12.8 g/dl (12.0-15.5); LYMPH # 1.5 10^3/uL (1.5-5.0); LYMPH % 10.6 % (24.0-44.0); MEAN CORPUSCULAR HEMOGLOBIN 31.7 pg (27.0-33.0); MEAN CORPUSCULAR HGB CONC 33.1 g/dl (32.0-36.5); MEAN CORPUSCULAR VOLUME 95.8 fl (80.0-96.0); MONO # 1.2 10^3/uL (0.0-0.8); MONO % 8.2 % (2.0-8.0); NEUTROPHILS # 11.3 10^3/uL (1.5-8.5); NEUTROPHILS % 79.2 % (36.0-66.0); PLATELET COUNT, AUTOMATED 332 10^3/uL (150-450); RED BLOOD COUNT 4.04 10^6/uL (4.00-5.40); WHITE BLOOD COUNT 14.3 10^3/uL (4.0-10.0)
[2021-11-10 16:56] LABS: HCG, SERUM QUALITATIVE NEGATIVE (NEGATIVE)
[2021-11-10 17:07] LABS: ALBUMIN 3.5 GM/DL (3.2-5.2); ALT/SGPT 34 U/L (12-78); BILIRUBIN,DIRECT 0.2 MG/DL (0.0-0.2); BILIRUBIN,TOTAL 0.6 MG/DL (0.2-1.0); BLOOD UREA NITROGEN 16 MG/DL (7-18); CALCIUM LEVEL 8.7 MG/DL (8.5-10.1); CARBON DIOXIDE LEVEL 26 MEQ/L (21-32); CHLORIDE LEVEL 111 MEQ/L (98-107); CREATININE FOR GFR 0.87 MG/DL (0.55-1.30); GLOMERULAR FILTRATION RATE > 60.0 (>58); GLUCOSE, FASTING 94 MG/DL (70-100); LIPASE 77 U/L (73-393); POTASSIUM SERUM 4.9 MEQ/L (3.5-5.1); SODIUM LEVEL 139 MEQ/L (136-145); TOTAL PROTEIN 6.5 GM/DL (6.4-8.2)
[2021-11-10] MEDS ORDERED: FLOM0.4C39 PO (19:23)
[2021-11-10] MEDS ORDERED: KETO10TAB PO (19:24)
[2021-11-10 19:32] VITALS: BP 124/63
== END 2021-11-10 19:39 | disposition home or self-care (01) ==
LOC: M ED 14:56
DX: N20.0 Calculus of kidney (principal); F17.200 Nicotine dependence, unspecified, uncomplicated
CPT/HCPCS: 74176; 80047; 80048; 80076; 81001; 83690; 84703; 85025; 87086; 93041; 94760; 96374; 96375; 99284; J1885; J2405

== ENCOUNTER → 2021-11-23 | Outpatient (CLI) | payer BC ==
[2021-11-23 15:33] LABS: APPEARANCE, URINE CLOUDY (CLEAR); BACTERIA, URINE AUTO 1+ (NEGATIVE); BILIRUBIN, URINE AUTO NEGATIVE (NEGATIVE); BLOOD, URINE BLOOD 1+ (NEGATIVE); COLOR, URINE AMBER (YELLOW); GLUCOSE, URINE (UA) AUTO NEGATIVE (NEGATIVE); KETONE, URINE AUTO TRACE mg/dL (NEGATIVE); LEUKOCYTE ESTERASE, URINE AUTO 2+ (NEGATIVE); MUCUS, URINE SMALL (NEGATIVE); NITRITE, URINE AUTO NEGATIVE (NEGATIVE); PROTEIN, URINE AUTO NEGATIVE (NEGATIVE); RBC, URINE AUTO 12 /HPF (0-3); SPECIFIC GRAVITY URINE AUTO 1.015 (1.002-1.035); SQUAMOUS EPITHELIAL CELL UR AU 1 /HPF (0-6); UROBILINOGEN, URINE AUTO 0.2 mg/dL (0.0-2.0); WBC, URINE AUTO 50 /HPF (0-3)
== END ==
LOC: M LAB 13:47
PROVIDERS: ATTEND Urology
DX: R30.0 Dysuria (principal)

== ENCOUNTER → 2021-12-12 | Outpatient (CLI) | payer BC ==
[2021-12-12 16:55] LABS: APPEARANCE, URINE MANUAL CLOUDY (CLEAR); COLOR, URINE MANUAL YELLOW (YELLOW)
[2021-12-12 16:56] LABS: BILIRUBIN, URINE MANUAL NEGATIVE (NEGATIVE); BLOOD URINE MANUAL POSITIVE (NEGATIVE); GLUCOSE, URINE (UA) MANUAL NEGATIVE (NEGATIVE); KETONE, URINE MANUAL NEGATIVE (NEGATIVE); LEUKOCYTE ESTERASE, URINE MAN TRACE (NEGATIVE); NITRITE, URINE MANUAL POSITIVE (NEGATIVE); PROTEIN, URINE MANUAL NEGATIVE (NEGATIVE); UROBILINOGEN, URINE MANUAL NORMAL (NORMAL)
[2021-12-12 17:32] LABS: AMORPHOUS SEDIMENT, URINE SMALL AMOUNT (NEGATIVE); BACTERIA, URINE LARGE AMOUNT; HYALINE CAST, URINE NONE SEEN /lpf (0-1); SQUAMOUS EPITHELIAL CELL URINE SMALL AMOUNT /hpf (SMALL AMT)
== END ==
LOC: M LAB 15:06
PROVIDERS: ATTEND Urology
DX: R30.0 Dysuria (principal)

== ENCOUNTER → 2022-01-11 | Outpatient (CLI) | payer BC ==
[2022-01-12 13:38] LABS: APPEARANCE, URINE MANUAL HAZY (CLEAR); BILIRUBIN, URINE MANUAL NEGATIVE (NEGATIVE); BLOOD URINE MANUAL TRACE (NEGATIVE); COLOR, URINE MANUAL YELLOW (YELLOW); GLUCOSE, URINE (UA) MANUAL NEGATIVE (NEGATIVE); KETONE, URINE MANUAL NEGATIVE (NEGATIVE); LEUKOCYTE ESTERASE, URINE MAN TRACE (NEGATIVE); NITRITE, URINE MANUAL NEGATIVE (NEGATIVE); PROTEIN, URINE MANUAL TRACE mg/dL (NEGATIVE); UROBILINOGEN, URINE MANUAL NORMAL (NORMAL)
[2022-01-12 13:49] LABS: BACTERIA, URINE LARGE AMOUNT; SQUAMOUS EPITHELIAL CELL URINE MOD AMOUNT /hpf (SMALL AMT)
[2022-01-12 13:50] LABS: HYALINE CAST, URINE NONE SEEN /lpf (0-1); MUCUS, URINE MOD AMOUNT (NEGATIVE); WBC, URINE 40-50 /hpf (0-3)
== END ==
LOC: M RAD 17:10
PROVIDERS: ATTEND Urology
DX: N39.0 Urinary tract infection, site not specified (principal)

== ENCOUNTER → 2022-02-20 | Outpatient (REF) | payer BC | LOC: M SMT 13:11 | PROVIDERS: ATTEND Urology | DX: N39.0 Urinary tract infection, site not specified (principal) ==

== ENCOUNTER → 2022-03-26 | Outpatient (CLI) | payer BC ==
[~2022-03-26] MED LIST changes: +TIOP100T PO
== END ==
LOC: M LABSMTC 17:08
PROVIDERS: ATTEND Anesthesiology
DX: Z01.812 Encounter for preprocedural laboratory examination (principal); Z11.52 Encounter for screening for COVID-19

== ENCOUNTER 2022-03-28 07:17 | Day surgery (SDC) | payer BC ==
[~2022-03-28] VITALS: Ht 162.6 cm; Wt 59.0 kg
[~2022-03-28 07:17] MED LIST changes: +ceFAZolin SOD 2 GM in IV 1 EA IV ONE
[2022-03-28] MEDS ORDERED: LR 1,000 ML IV SCH (07:45)
[2022-03-28] MEDS ORDERED: ONDANSETRON 4MG 2ML VIAL As Ordered ONE (08:40)
[2022-03-28] MEDS ORDERED: MIDAZOLAM INJ 2MG/2ML VIAL (J2250 PER 1MG) As Ordered ONE (08:40)
[2022-03-28] MEDS ORDERED: LIDOCAINE 2% 100MG/5ML SDV (FOR ANES.) As Ordered ONE (08:40)
[2022-03-28] MEDS ORDERED: fentaNYL 100 MCG/2 ML INJECTION As Ordered ONE (08:40)
[2022-03-28] MEDS ORDERED: propofoL 200 MG/20 ML VIAL As Ordered ONE (08:40)
[2022-03-28] MEDS ORDERED: KETOROLAC 60MG 2ML VIAL As Ordered ONE (08:40)
[2022-03-28] MEDS ORDERED: ISOVUE-300 61% 50ML VIAL As Ordered ONE (09:14)
[2022-03-28] MEDS ORDERED: HALOPERIDOL 5MG/ML VIAL (J1630 PER 1) As Ordered ONE (09:16)
[2022-03-28] MEDS ORDERED: SCOPOLAMINE 1MG TRANSDERMAL PATCH TOP ONE (09:20)
[2022-03-28] MEDS ORDERED: KETO10TAB PO (09:23)
[2022-03-28] MEDS ORDERED: ONDA-83 PO (09:23)
[2022-03-28] MEDS ORDERED: METOCLOPRAMIDE INJ 10MG/2ML VIAL As Ordered ONE (10:19)
[2022-03-28] MEDS ORDERED: ACETAMINOPHEN 1000MG 100ML IV BAG As Ordered ONE (10:19)
[2022-03-28] MEDS ORDERED: OXYB5TAB10 PO (11:25)
[2022-03-28] MEDS ORDERED: oxyBUTYnin 5 MG TAB PO STA (12:01)
[2022-03-28 12:30] VITALS: BP 143/82
[2022-03-28] MEDS ORDERED: ACETAMINOPHEN TAB 650MG DOSE (2X325MG) PO PRN (13:15)
[2022-03-28] MEDS ORDERED: oxyBUTYnin 5 MG TAB PO PRN (13:15)
[2022-04-05 14:08] LABS: Size 3x5 mm (.)
== END 2022-03-28 12:50 | disposition home or self-care (01) ==
LOC: M SDC 07:17
PROVIDERS: ATTEND Urology
DX: N20.0 Calculus of kidney (principal); Q62.5 Duplication of ureter; Q61.5 Medullary cystic kidney; K21.9 Gastro-esophageal reflux disease without esophagitis; F17.210 Nicotine dependence, cigarettes, uncomplicated
CPT/HCPCS: 52356; 74420; 81025; 82365; C1769; C1894; C2617; J0131; J0690; J1100; J1885; J2250; J2405; J2765

== ENCOUNTER → 2023-03-27 | Outpatient (REF) | payer BC ==
[~2023-03-27] MED LIST changes: -OXYB5TAB10 PO; +OXYB5TAB11 PO; -ceFAZolin SOD 2 GM in IV 1 EA IV ONE
[2023-03-27 14:04] LABS: APPEARANCE, URINE CLEAR (CLEAR); BACTERIA, URINE AUTO NEGATIVE (NEGATIVE); BILIRUBIN, URINE AUTO NEGATIVE (NEGATIVE); BLOOD, URINE BLOOD NEGATIVE (NEGATIVE); COLOR, URINE YELLOW (YELLOW); GLUCOSE, URINE (UA) AUTO NEGATIVE (NEGATIVE); KETONE, URINE AUTO NEGATIVE (NEGATIVE); LEUKOCYTE ESTERASE, URINE AUTO TRACE (NEGATIVE); NITRITE, URINE AUTO NEGATIVE (NEGATIVE); PROTEIN, URINE AUTO NEGATIVE (NEGATIVE); RBC, URINE AUTO 2 /HPF (0-3); SPECIFIC GRAVITY URINE AUTO 1.008 (1.002-1.035); SQUAMOUS EPITHELIAL CELL UR AU 0 /HPF (0-6); UROBILINOGEN, URINE AUTO 0.2 mg/dL (0.0-2.0); WBC, URINE AUTO 6 /HPF (0-3)
== END ==
LOC: M SMT 13:20
PROVIDERS: ATTEND Urology
DX: N39.0 Urinary tract infection, site not specified (principal)

== ENCOUNTER → 2023-04-12 | Outpatient (REF) | LOC: M EMP 09:54 | PROVIDERS: ATTEND Family Medicine | DX: Z11.52 Encounter for screening for COVID-19 (principal) ==

== ENCOUNTER → 2024-03-27 | Outpatient (REF) ==
[~2024-03-27] MED LIST changes: -OXYB5TAB11 PO; +OXYB5TAB14 PO; -POTA10808 PO; +POTA10809 PO
== END ==
LOC: M EMP 07:04
PROVIDERS: ATTEND Family Medicine
DX: Z11.52 Encounter for screening for COVID-19 (principal)

== ENCOUNTER → 2024-04-02 | Outpatient (CLI) | payer BC ==
[2024-04-02 13:47] LABS: APPEARANCE, URINE HAZY (CLEAR); BACTERIA, URINE AUTO 1+ (NEGATIVE); BILIRUBIN, URINE AUTO NEGATIVE (NEGATIVE); BLOOD, URINE BLOOD NEGATIVE (NEGATIVE); COLOR, URINE YELLOW (YELLOW); GLUCOSE, URINE (UA) AUTO NEGATIVE (NEGATIVE); KETONE, URINE AUTO NEGATIVE (NEGATIVE); LEUKOCYTE ESTERASE, URINE AUTO 2+ (NEGATIVE); MUCUS, URINE SMALL (NEGATIVE); NITRITE, URINE AUTO POSITIVE (NEGATIVE); PROTEIN, URINE AUTO NEGATIVE (NEGATIVE); RBC, URINE AUTO 3 /HPF (0-3); SPECIFIC GRAVITY URINE AUTO 1.015 (1.002-1.035); SQUAMOUS EPITHELIAL CELL UR AU 0 /HPF (0-6); UROBILINOGEN, URINE AUTO 0.2 mg/dL (0.0-2.0); WBC, URINE AUTO 106 /HPF (0-3)
== END ==
LOC: M LAB 13:17
PROVIDERS: ATTEND Urology
DX: R30.0 Dysuria (principal)

== ENCOUNTER → 2024-05-07 | Outpatient (REF) | payer BC ==
[2024-05-07 11:56] LABS: APPEARANCE, URINE CLEAR (CLEAR); BACTERIA, URINE AUTO 3+ (NEGATIVE); BILIRUBIN, URINE AUTO NEGATIVE (NEGATIVE); BLOOD, URINE BLOOD NEGATIVE (NEGATIVE); COLOR, URINE STRAW (YELLOW); GLUCOSE, URINE (UA) AUTO NEGATIVE (NEGATIVE); KETONE, URINE AUTO NEGATIVE (NEGATIVE); LEUKOCYTE ESTERASE, URINE AUTO NEGATIVE (NEGATIVE); NITRITE, URINE AUTO NEGATIVE (NEGATIVE); PROTEIN, URINE AUTO NEGATIVE (NEGATIVE); RBC, URINE AUTO 1 /HPF (0-3); SPECIFIC GRAVITY URINE AUTO 1.004 (1.002-1.035); SQUAMOUS EPITHELIAL CELL UR AU 0 /HPF (0-6); UROBILINOGEN, URINE AUTO 0.2 mg/dL (0.0-2.0); WBC, URINE AUTO 3 /HPF (0-3)
== END ==
LOC: M SMT 10:44
PROVIDERS: ATTEND Urology
DX: N39.0 Urinary tract infection, site not specified (principal)

== ENCOUNTER → 2024-05-28 | Outpatient (CLI) | payer BC | LOC: M RAD 14:34 | PROVIDERS: ATTEND Urology | DX: N20.0 Calculus of kidney (principal) ==

== ENCOUNTER → 2024-06-08 | Outpatient (REF) | payer BC ==
[2024-06-08 11:15] LABS: APPEARANCE, URINE HAZY (CLEAR); BACTERIA, URINE AUTO 2+ (NEGATIVE); BILIRUBIN, URINE AUTO NEGATIVE (NEGATIVE); BLOOD, URINE BLOOD NEGATIVE (NEGATIVE); COLOR, URINE YELLOW (YELLOW); GLUCOSE, URINE (UA) AUTO NEGATIVE (NEGATIVE); KETONE, URINE AUTO NEGATIVE (NEGATIVE); LEUKOCYTE ESTERASE, URINE AUTO 1+ (NEGATIVE); MUCUS, URINE SMALL (NEGATIVE); NITRITE, URINE AUTO NEGATIVE (NEGATIVE); PROTEIN, URINE AUTO NEGATIVE (NEGATIVE); RBC, URINE AUTO 2 /HPF (0-3); SPECIFIC GRAVITY URINE AUTO 1.011 (1.002-1.035); SQUAMOUS EPITHELIAL CELL UR AU 1 /HPF (0-6); UROBILINOGEN, URINE AUTO 0.2 mg/dL (0.0-2.0); WBC, URINE AUTO 21 /HPF (0-3)
== END ==
LOC: M SMT 09:53
PROVIDERS: ATTEND Urology
DX: N39.0 Urinary tract infection, site not specified (principal)

== ENCOUNTER → 2024-06-18 | Outpatient (REF) | payer BC ==
[2024-06-18 11:35] LABS: APPEARANCE, URINE CLEAR (CLEAR); BACTERIA, URINE AUTO NEGATIVE (NEGATIVE); BILIRUBIN, URINE AUTO NEGATIVE (NEGATIVE); BLOOD, URINE BLOOD NEGATIVE (NEGATIVE); COLOR, URINE YELLOW (YELLOW); GLUCOSE, URINE (UA) AUTO NEGATIVE (NEGATIVE); KETONE, URINE AUTO NEGATIVE (NEGATIVE); LEUKOCYTE ESTERASE, URINE AUTO NEGATIVE (NEGATIVE); MUCUS, URINE SMALL (NEGATIVE); NITRITE, URINE AUTO NEGATIVE (NEGATIVE); PROTEIN, URINE AUTO NEGATIVE (NEGATIVE); RBC, URINE AUTO 2 /HPF (0-3); SPECIFIC GRAVITY URINE AUTO 1.011 (1.002-1.035); SQUAMOUS EPITHELIAL CELL UR AU 0 /HPF (0-6); UROBILINOGEN, URINE AUTO 0.2 mg/dL (0.0-2.0); WBC, URINE AUTO 1 /HPF (0-3)
== END ==
LOC: M SMT 10:10
PROVIDERS: ATTEND Urology
DX: N39.0 Urinary tract infection, site not specified (principal)

== ENCOUNTER → 2025-03-24 | Outpatient (REF) | payer BC ==
[~2025-03-24] MED LIST changes: +CLOB5CR TOP; -FLOM0.4C39 PO; +TAMS-18 PO
[2025-03-24 14:56] LABS: APPEARANCE, URINE HAZY (CLEAR); BACTERIA, URINE AUTO 1+ (NEGATIVE); BILIRUBIN, URINE AUTO NEGATIVE (NEGATIVE); BLOOD, URINE BLOOD 2+ (NEGATIVE); GLUCOSE, URINE (UA) AUTO NEGATIVE (NEGATIVE); KETONE, URINE AUTO TRACE mg/dL (NEGATIVE); LEUKOCYTE ESTERASE, URINE AUTO 3+ (NEGATIVE); MUCUS, URINE SMALL (NEGATIVE); NITRITE, URINE AUTO POSITIVE (NEGATIVE); PROTEIN, URINE AUTO NEGATIVE (NEGATIVE); RBC, URINE AUTO 13 /HPF (0-3); SPECIFIC GRAVITY URINE AUTO 1.004 (1.002-1.035); SQUAMOUS EPITHELIAL CELL UR AU 0 /HPF (0-6); UROBILINOGEN, URINE AUTO 0.2 mg/dL (0.0-2.0); WBC, URINE AUTO 126 /HPF (0-3); YEAST LIKE CELL URINE AUTO SMALL
== END ==
LOC: M SMT 13:10
PROVIDERS: ATTEND Urology
DX: E72.01 Cystinuria (principal)